=== PATIENT | female | born 1935 | race Caucasian/White ===

== ENCOUNTER 2018-01-23 12:19 | Outpatient (CLI) | payer MEDICARE | END 2018-01-23 12:20 | disposition home or self-care (01) | LOC: BICMAMMO 12:19 | PROVIDERS: ATTEND Family Medicine | DX: Z12.31 Encounter for screening mammogram for malignant neoplasm of breast (principal) | CPT/HCPCS: 77063; 77067 ==

== ENCOUNTER 2019-02-19 13:03 | Outpatient (CLI) | payer MEDICARE ==
--- NOTE | 2019-02-19 15:46 | MMO ---
Bilateral MAMMO Bilat Screen [facility]. CLINICAL HISTORY: Patient is 83 years old and is seen for screening. The patient has no family history of breast cancer. The patient has no personal history of cancer. The patient has a history of right Excisional Biopsy in 20+ years ago - Benign. VIEWS: The views performed were: bilateral craniocaudal with tomosynthesis and bilateral mediolateral oblique with tomosynthesis. FILMS COMPARED: The present examination has been compared to prior imaging studies performed at [facility] on 12/10/2014, 12/15/2015, 12/29/2016 and 01/23/2018. MAMMOGRAM FINDINGS: The breasts are heterogeneously dense, which could obscure a lesion on mammography. There are benign appearing and vascular calcifications seen in both breasts. There are no suspicious masses, suspicious calcifications, or new areas of architectural distortion. IMPRESSION: THERE IS NO MAMMOGRAPHIC EVIDENCE OF MALIGNANCY. A ROUTINE FOLLOW-UP MAMMOGRAM IN 1 YEAR IS RECOMMENDED. THE RESULTS OF THIS EXAM WERE SENT TO THE PATIENT. ACR BI-RADS Category 2 - Benign finding MAMMOGRAPHY NOTE: 1. A negative mammogram report should not delay a biopsy if a dominant of clinically suspicious mass is present. 2. Approximately 10% to 15% of breast cancers are not detected by mammography. 3. Adenosis and dense breasts may obscure an underlying neoplasm. Reported by: VIRI MCKEE MD Electonically Signed: [id number]
== END 2019-02-19 13:04 | disposition home or self-care (01) ==
LOC: BICMAMMO 13:03
PROVIDERS: ATTEND Family Medicine
DX: Z12.31 Encounter for screening mammogram for malignant neoplasm of breast (principal); Z91.89 Other specified personal risk factors, not elsewhere classified
CPT/HCPCS: 77063; 77067

== ENCOUNTER 2019-03-19 06:43 | Emergency (ER) | payer MEDICARE ==
[2019-03-19] MEDS ORDERED: Adacel (T-DAP) 0.5 ML SYRINGE ONE (08:25)
--- NOTE | 2019-03-19 08:46 | RAD ---
RADIOGRAPH LEFT ANKLE THREE VIEWS: 03/19/2019 HISTORY: An 83-year-old female with traumatic left ankle pain after a fall. FINDINGS: The ankle mortise is congruent. No displaced fracture is identified. No high grade DJD. The talar dom e is maintained. IMPRESSION: 1. No fracture identified. 2. If symptoms persist, follow-up imaging is recommended in 5 to 10 days. POS: [facility]
[2019-03-19] MEDS ORDERED: traMADol HCl 50 MG TAB ONE ×2 (09:02→14:17)
--- NOTE | 2019-03-19 09:03 | RAD ---
RADIOGRAPH LEFT KNEE FOUR VIEWS: 03/19/2019 6:55 a.m. HISTORY: An 83-year-old female with acute traumatic left knee pain after a fall. FINDINGS: Metallic prostheses cover the resurfaced articular surfaces of the distal femur and the tibial platea u. Resurfacing changes of the posterior aspect of the patella. There is a vertically oriented linear lucency at the lateral edge of the lateral femoral condyle, located close to the lateral edge of the femoral metallic prosthesis, representing a fracture. There is minimal-mild lateral displacement of t he 4.5 x 1 cm lateral fracture fragment. There is a moderately large suprapatellar soft tissue densit y, which could represent hemarthrosis. No dislocation. IMPRESSION: 1. Evidence for a minimally or mildly displaced fracture of the lateral edge of the lateral femoral c ondyle, presumably acute. 2. Evidence for hemarthrosis. 3. Status post total left knee replacement arthroplasty. POS: [facility]
--- NOTE | 2019-03-19 09:13 | RAD ---
LEFT HAND THIRD DIGIT THREE VIEWS: HISTORY: Fall. Pain. Swelling. FINDINGS: There is degenerative change involving the distal interphalangeal joint space and the proximal interp halangeal joint space. There is no fracture. No cortical irregularity or periosteal reaction. Soft ti ssue swelling is noted at the proximal aspect of the third digit. IMPRESSION: Soft tissue swelling without evidence of fracture. POS: [facility]
== END 2019-03-19 14:28 ==
LOC: ERS 06:43
DX: S72.422A Displaced fracture of lateral condyle of left femur, initial encounter for closed fracture (principal); E11.9 Type 2 diabetes mellitus without complications; K21.9 Gastro-esophageal reflux disease without esophagitis; E78.5 Hyperlipidemia, unspecified; E78.00 Pure hypercholesterolemia, unspecified; I10 Essential (primary) hypertension; Z23 Encounter for immunization; Z79.899 Other long term (current) drug therapy; Z79.82 Long term (current) use of aspirin; Z79.84 Long term (current) use of oral hypoglycemic drugs; W01.0XXA Fall on same level from slipping, tripping and stumbling without subsequent striking against object, initial encounter
CPT/HCPCS: 90471; 90715

== ENCOUNTER 2019-04-29 09:39 | Observation (INO) | payer MEDICARE ==
[2019-04-29 10:20] LABS: #Lymphocytes 1.5 thou/uL (1.20-3.40); #Monocytes 0.6 thou/uL (0.11-0.59); #Neutrophils 7.3 thou/uL (1.40-6.50); %Basophils 0.5 % (0.0-1.0); %Eosinophils 0.4 % (0.0-10.0); %Lymphocytes 15.8 % (21.0-51.0); %Monocytes 6.3 % (0.0-10.0); Mean Corpuscular Hemoglobin 25.4 pg (27.0-31.0); Mean Corpuscular Volume 79.5 fL (78.0-98.0); Mean Platelet Volume 8.4 fL (7.4-10.4); Platelet Count 405 thou/uL (130-400); RBC Distribution Width 15.1 % (11.5-14.5); Red Blood Cell (RBC) Count 3.56 mill/uL (4.20-5.40); White Blood Cell (WBC) Count 9.4 thou/uL (4.8-10.8)
--- NOTE | 2019-04-29 10:32 | RAD ---
XR Chest 1 View Portable HISTORY: Intermittent left shoulder and back pain radiating into the left chest. Left chest pain COMPARISON: 09/13/2013 FINDINGS: The heart size is at upper limits of normal. Left-sided AICD remains in place. The lungs ar e well expanded without focal areas of consolidation, pneumothorax or pleural effusions. IMPRESSION: No radiographic evidence of acute cardiopulmonary process.
[2019-04-29] MEDS ORDERED: Nitroglycerin 2% Ointment 1 INCH/1 GM Packet ONE (10:49)
[2019-04-29 10:53] LABS: ALT (SGPT) 10 U/L (8-55); AST (SGOT) 12 U/L (5-34); Albumin 3.9 g/dL (3.4-4.8); Alkaline Phosphatase 81 U/L (40-110); Anion Gap 15 mmol/L (10-20); BUN (Urea Nitrogen) 14 mg/dL (9.8-20.1); Bilirubin, Total 0.3 mg/dL (0.2-1.2); CK (CPK) 57 U/L (29-168); Calc. Creatinine Clearance 0 mL/min (70-130); Calcium 8.9 mg/dL (7.8-10.44); Carbon Dioxide 23 mmol/L (23-31); Chloride 103 mmol/L (98-107); Estimated GFR-MDRD 71; Globulin 2.9 g/dL (2.4-3.5); Glucose 112 mg/dL (83-110); Lipase 14 U/L (8-78); Potassium 3.6 mmol/L (3.5-5.1); Protein, Total 6.8 g/dL (6.0-8.3); Sodium 137 mmol/L (136-145)
[2019-04-29] MEDS ORDERED: Aspirin Chewable 81 MG TAB ONE (11:00)
[2019-04-29] MEDS ORDERED: Iopamidol-370 76% 500 ML 1 ML ONE (11:04)
--- NOTE | 2019-04-29 11:41 | CT ---
CT PULMONARY ANGIOGRAM WITH IV CONTRAST AND 3-D POSTPROCESSING: HISTORY:Left-sided chest pain FINDINGS: There is good contrast opacification of the pulmonary arterial vasculature without filling defects to suggest pulmonary embolism. The thoracic aorta is without aneurysm. No pleural or pericardial effusions are seen. No pneumothoraces, focal areas of consolidation or lung nodules are noted. There is mild scarring at the lung bases. There are degenerative changes in the spine. Upper abdominal tomograms demonstrate changes of cholecystectomy. IMPRESSION: No CT evidence of pulmonary embolism.
[2019-04-29] MEDS ORDERED: Potassium Chloride 20 MEQ TAB PO SCH (12:55)
[2019-04-29] MEDS ORDERED: Potassium Chloride 20 MEQ TAB ONE (12:58)
[2019-04-29 13:53] LABS: Troponin I Less than 0.010 ng/mL (< 0.028)
[2019-04-29 14:19] VITALS: BMI 27.1
[2019-04-29] MEDS ORDERED: HumaLOG 300 UNITS/3 ML VIAL SC PRN (14:21)
[2019-04-29] MEDS ORDERED: Dextrose 5% in Water 1,000 ML IV PRN (14:21)
[2019-04-29] MEDS ORDERED: Dextrose 50% Abboject 50 ML SYRINGE SLOW IVP PRN (14:21)
[2019-04-29] MEDS ORDERED: Magnesium 2 GM/50 ML 2 GM in Premix Bag 1 BAG IVPB SCH (15:00)
[2019-04-29] MEDS: Gabapentin 300 MG CAP PO SCH ×2 (15:12→20:17)
[2019-04-29] MEDS ORDERED: Nitroglycerin 2% Ointment 1 INCH/1 GM Packet TOP PRN (16:46)
[2019-04-29 16:48] LABS: Troponin I Less than 0.010 ng/mL (< 0.028)
[2019-04-29] MEDS: traMADol HCl 50 MG TAB PO PRN (17:04)
[2019-04-29] MEDS: Carvedilol 6.25 MG TAB PO SCH (20:17)
[2019-04-29] MEDS ORDERED: Atorvastatin Calcium 40 MG TAB PO SCH (21:00)
[2019-04-29] MEDS ORDERED: Pravastatin Sodium 20 MG TAB PO SCH (21:00)
--- NOTE | 2019-04-29 21:34 | HP ---
CHIEF COMPLAINT: Left shoulder pain, and chest pain. HISTORY OF PRESENT ILLNESS: The patient is an 83-year-old female with a history of systolic heart failure. She has an AICD, who presents to the hospital with complaints of left shoulder pain, which worsened and came to her chest area. The patient states that on Monday, she started having left-sided scapular pain, which was sharp in nature. The patient did not remember lifting anything. She stated that she was sitting when she started having this pain. Monday and Monday, her pain worsened to the point that today, the pain radiated up to her front chest wall area and it was very dull in nature. She denies any diaphoresis, any shortness of breath, or any fevers and chills, or any nausea, or vomiting. The patient states that she does follow up with Dr. Shirley and saw Dr. Shirley recently. However, she did not get a chance to get her pacemaker interrogated. 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 However, while she was in the ER, she had multiple episodes of PVCs and the patient was completely asymptomatic. PAST MEDICAL HISTORY: As of the following; 1. GERD. 2. Hypertension. 3. Systolic heart failure. 4. Borderline diabetic. PAST SURGICAL HISTORY: She has had bilateral knee replacement. She has a pacemaker ICD. PAST SURGICAL HISTORY: Cholecystectomy and hysterectomy. SOCIAL HISTORY: She denies any alcohol use, or any other recreational drug use. She is a full code. Lives with her son. REVIEW OF SYSTEMS: All negative except for the ones mentioned above in the HPI. ALLERGIES: HYDROCODONE AND MORPHINE. MEDICATIONS: 1. Aspirin 325 daily. 2. Benazepril 20 mg daily. 3. Carvedilol 12.5 b.i.d. 4. Gabapentin 600 mg twice a day. 5. Omeprazole 20 mg daily. 6. Tramadol 50 mg daily. 7. Atorvastatin 40 mg daily. 8. Metformin 500 mg twice a day. PHYSICAL EXAMINATION: VITAL SIGNS: Temperature of 97.7, oxygenation 96%, respiratory rate 16, blood pressure 117/76, pulse 65. GENERAL: She is awake, alert, and oriented x3. Does not appear in distress. HEENT: Normocephalic, atraumatic. No lymphadenopathy noted. Pupils are equal and reactive to light. CARDIOVASCULAR: S1 and S2 present. No murmurs, rubs, or gallops. LUNGS: Clear to auscultation. No rhonchi or wheezes noted. ABDOMEN: Soft and nontender. Bowel sounds are present x2. EXTREMITIES: No edema. Pedal pulses are present x2. MUSCULOSKELETAL: I did palpate around her left joint area. She had no pain that was reproducible. LABORATORY RESULTS: As of the following; WBCs of 9.4, hemoglobin of 9.0, hematocrit of 28.3. Her MCV 79.5. Chemistry; sodium of 137, potassium of 3.6, BUN of 14, creatinine of 0.77. Her troponin x2 were negative. Her BNP was 787. She did have a CTA, which did not show any pulmonary embolism. ASSESSMENT AND PLAN: The patient is a very pleasant 83-year-old female, who presents to the hospital with complaints of some chest tightness. 1. Atypical chest pain. The patient stated that her pain was in her left shoulder, which radiated to her chest and became very dull in nature. She had multiple episodes of PVCs and almost had a little run of PVC. I did check her electrolytes. Her magnesium was very low. This could be because of low magnesium. I will go ahead and interrogate her ICD and we will also consult Cardiology. I am not sure if she had recent testing done in regard to echo or a stress test. She states that she has had a stress test, but this has been in the past. She is currently on a beta denae, which I will continue. The patient is completely asymptomatic. Upon reviewing her records, the patient does seem to have had a cardiac catheterization that had indicated mild obstructive coronary disease. I am not sure if there is any recent cardiac catheterization. 2. Hypertension. We will continue her home medication. 3. History of systolic heart failure. We will check a BNP and continue her home medications. 4. Diabetes. We will hold metformin currently due to her receiving contrast and I have notified this to the patient. 5. Deep venous thrombosis prophylaxis. We will put patient on some subcu Lovenox. Job ID: [id number]
--- NOTE | 2019-04-30 01:44 | CON ---
DATE OF CONSULTATION: HISTORY OF PRESENT ILLNESS: Delores Pimentel is an 83-year-old white female, patient who has followed with Dr. Shirley for many years. In June 2013, she underwent cardiac catheterization and was found to have a 40% lesion in the LAD after the diagonal branch. The circumflex had no significant stenosis and the right coronary had a 20% proximal plaque at the ostium. Her ejection fraction was 25%, and she had chronic left bundle-branch block. She underwent placement of a biventricular ICD in September 2013. Her most recent echocardiogram was in October 2018. Her ejection fraction was 55% to 60% with frequent PVCs, trace mitral regurgitation, aortic valvular sclerosis, trace aortic regurgitation, mild tricuspid regurgitation. She was last seen in the office on April 11, 2019 and had no specific complaints at that time. She had been having some falls whenever she would lean over. She states that she has had chronic left scapular pain and has undergone multiple thoracic spine injections by Dr. Gracia. She states that this morning she had the same type of discomfort, however, at this time it radiated around to her chest. It lasted for several minutes and she decided to come get it checked out. In the emergency room, she was given aspirin and nitropaste. At the present time, she denies any chest discomfort. PAST MEDICAL HISTORY: Mild coronary artery disease, hypercholesterolemia, hypertension, chronic systolic congestive heart failure, however, significant improvement with biventricular pacing, history of atrial fibrillation, PVCs. PAST SURGICAL HISTORY: Cholecystectomy, hysterectomy, and biventricular ICD placement. MEDICATIONS: 1. Aspirin 325 daily. 2. Carvedilol 12.5 b.i.d. 3. Vitamin B12 and folic acid daily. 4. q.6 hours p.r.n. 5. Neurontin 2 capsules b.i.d. 6. Hydrochlorothiazide 12.5 q.a.m. 7. Lisinopril 20 daily. 8. Metformin 500 mg b.i.d. 9. Prilosec 20 b.i.d. 10. Pravastatin 20 q.p.m. 11. Tramadol 50 at bedtime. ALLERGIES: NONE. REVIEW OF SYSTEMS: A 10-point review of systems is otherwise unremarkable. PHYSICAL EXAMINATION: VITAL SIGNS: Blood pressure 194/92, pulse of 91. HEENT: PERRL. NECK: Supple. CHEST: Clear. CARDIAC: S1 and S2 normal without any S3, S4, or murmurs. ABDOMEN: Normal bowel sounds without tenderness, organomegaly. EXTREMITIES: Reveal no clubbing, cyanosis, or edema. NEUROLOGIC: Grossly intact. MUSCULOSKELETAL: Reveals no palpable chest tenderness or left scapular or left infrascapular pain. LABORATORY DATA: EKG reveals A-V pacing with trigeminal PVCs. Hemoglobin 9.0, hematocrit 28.3, white count 9400, platelets 405,000. D-dimer 0.50. BNP 787.4. Troponin I is normal x3. Sodium 137, potassium 3.6, chloride 103, carbon dioxide 23, BUN 14, creatinine 0.77. CT angiogram of the chest revealed no evidence of pulmonary embolism. IMPRESSION: 1. Atypical left scapular and left chest pain, probably musculoskeletal in nature. 2. History of mild coronary artery disease on catheterization in 2013. 3. Left bundle-branch block with ejection fraction of 25% which is improved to 55%-60% with biventricular pacing. 4. Status post biventricular ICD placement. 5. Hypertension. 6. Hypercholesterolemia. 7. Diabetes. PLAN: Fasting lipid profile will be obtained. [facility] will be performed. She will undergo adenosine Cardiolite testing to re-evaluate the status of her coronary artery disease. Job ID: [id number] MTDD
[2019-04-30 05:15] LABS: Cardiac Risk 2.3 (Less than 4.5)
[2019-04-30] MEDS: Gabapentin 300 MG CAP PO SCH (08:27)
[2019-04-30] MEDS: traMADol HCl 50 MG TAB PO PRN (08:28)
[2019-04-30] MEDS ORDERED: Lisinopril 20 MG TAB PO SCH ×2 (09:00)
[2019-04-30] MEDS ORDERED: Aspirin 325 MG TAB PO SCH (09:00)
[2019-04-30] MEDS ORDERED: ADENOSINE 60 MG/20 ML VIAL ONE (10:42)
[2019-04-30 12:28] VITALS: BP 136/63; TEMP 97.4
--- NOTE | 2019-04-30 13:12 | NM ---
CARDIAC SPECT: HISTORY: An 83-year-old female with chest pain, coronary artery disease, hypertension, diabetes and dyslipidem ia. TECHNIQUE: A myocardial perfusion scan was performed using the single isotope one day protocol with technetium 9 9m sestamibi and 11 millicuries was injected intravenously for the rest exam followed by 29 millicuri es for the stress study. Pharmacologic stress with adenosine was monitored and interpreted by Dr. Yesika richard. FINDINGS: A small fixed defect is seen in the distal anteroseptal wall. No reversible defects are identified. GATED SPECT LVEF: 38% WALL MOTION EXAM: Global hypokinesis. IMPRESSION: No evidence of reversible ischemia. POS: OFF
--- NOTE | 2019-04-30 13:53 | DIS ---
DATE OF ADMISSION: 04/29/2019 DATE OF DISCHARGE: 04/30/2019 PRIMARY CARE PROVIDER: Dee Dee Salas MD CLOTH PATTERN MAKER: Alejandro Shirley MD DISPOSITION: Discharged home. DIAGNOSES: 1. Noncardiac chest pain. 2. Hypertension. 3. Diabetes mellitus, type 2. 4. Coronary artery disease, minimal. DISCHARGE MEDICATIONS: Same as home medicines. 1. Metformin 500 mg twice a day. 2. Zestril 20 mg a day. 3. Tramadol 50 mg p.o. q.4 hours p.r.n. pain. 4. Neurontin 600 mg twice a day. 5. Coreg 12.5 mg twice a day. 6. Aspirin 325 mg a day. 7. Hydrochlorothiazide 12.5 mg a day. 8. Pravastatin 20 mg a day. 9. Omeprazole 20 mg p.o. b.i.d. ALLERGIES: NO KNOWN DRUG ALLERGIES. PENDING AT TIME OF DISCHARGE: Nothing. DIET: Heart healthy. CODE STATUS: Full. CONSULTATIONS: Jose Juan Corral MD HOSPITAL COURSE: The patient admitted to the [facility] for shoulder pain, chest pain. Her EKG and enzymes were unremarkable. She was seen by Dr. Jose Juan Corral, who recommended the stress test. She had a nuclear medicine stress test, which showed no reversible ischemia. She is being discharged to follow up with her pain control doctor, Dr. Gracia. No changes in medications were made. No procedures were done. Job ID: [id number]
[2019-04-30] MEDS: Carvedilol 6.25 MG TAB PO SCH (13:57)
== END 2019-04-30 14:46 | disposition home or self-care (01) ==
LOC: ERS 09:39 → 2SW 14:00 → OBSVTOIN 17:11 → INTOOBSV 17:11
PROVIDERS: ADMIT Internal Medicine; ATTEND Internal Medicine
DX: R07.89 Other chest pain (principal); G89.29 Other chronic pain; M25.512 Pain in left shoulder; E11.9 Type 2 diabetes mellitus without complications; I11.0 Hypertensive heart disease with heart failure; I50.22 Chronic systolic (congestive) heart failure; I25.10 Atherosclerotic heart disease of native coronary artery without angina pectoris; I44.7 Left bundle-branch block, unspecified; K21.9 Gastro-esophageal reflux disease without esophagitis; E78.00 Pure hypercholesterolemia, unspecified; Z79.82 Long term (current) use of aspirin; Z79.84 Long term (current) use of oral hypoglycemic drugs; Z79.899 Other long term (current) drug therapy; Z95.810 Presence of automatic (implantable) cardiac defibrillator; Z88.5 Allergy status to narcotic agent
CPT/HCPCS: 71045; 71275; 78452; 80053; 80061; 82550; 82962 ×2; 83690; 83735; 83880; 84484 ×2; 85025; 85379; 93005; 93017; 94760; 96361; 96365; 99285; A9500; G0378 ×3; 36415; 36416; 96360; J0153; J3475; Q9967

== ENCOUNTER 2019-07-04 11:54 | Observation (INO) | payer MEDICARE ==
[2019-07-04 13:09] LABS: #Basophils 0.1 thou/uL (0.0-0.2); #Eosinphils 0.1 thou/uL (0.0-0.7); #Lymphocytes 2.1 thou/uL (1.20-3.40); #Monocytes 0.7 thou/uL (0.11-0.59); #Neutrophils 4.8 thou/uL (1.40-6.50); %Eosinophils 1.3 % (0.0-10.0); %Lymphocytes 26.9 % (21.0-51.0); %Monocytes 9.2 % (0.0-10.0); %Neutrophils 61.7 % (42.0-75.0); Hemoglobin 7.9 g/dL (12.0-16.0); Mean Corpuscular Hemoglobin 22.6 pg (27.0-31.0); Mean Corpuscular Volume 75.4 fL (78.0-98.0); Mean Platelet Volume 9.4 fL (7.4-10.4); Platelet Count 358 thou/uL (130-400); RBC Distribution Width 15.7 % (11.5-14.5); Red Blood Cell (RBC) Count 3.51 mill/uL (4.20-5.40); White Blood Cell (WBC) Count 7.8 thou/uL (4.8-10.8)
[2019-07-04 13:19] LABS: ALT (SGPT) 8 U/L (8-55); AST (SGOT) 10 U/L (5-34); Albumin 3.8 g/dL (3.4-4.8); Alkaline Phosphatase 77 U/L (40-110); Anion Gap 13 mmol/L (10-20); BUN (Urea Nitrogen) 25 mg/dL (9.8-20.1); Bilirubin, Total 0.2 mg/dL (0.2-1.2); Calc. Creatinine Clearance 0 mL/min (70-130); Calcium 9.1 mg/dL (7.8-10.44); Carbon Dioxide 31 mmol/L (23-31); Chloride 102 mmol/L (98-107); Estimated GFR-MDRD 62; Globulin 2.8 g/dL (2.4-3.5); Glucose 97 mg/dL (83-110); Potassium 4.3 mmol/L (3.5-5.1); Protein, Total 6.6 g/dL (6.0-8.3); Sodium 142 mmol/L (136-145)
[2019-07-04 13:31] LABS: Anisocytosis SLIGHT = 6-15 cells (100X) (0-5/hpf); Hypochromia SLIGHT = 6-15 cells (100X) (0-5/hpf); MDiff Complete? YES; Microcytosis SLIGHT = 6-15 cells (100X) (0-5/hpf); Ovalocytes SLIGHT = 2-5 cells (100X) (0-1/hpf); Platelet Morphology Comment Appears Adequate; Poikilocytosis SLIGHT = 6-15 cells (100X) (0-5/hpf); Polychromasia SLIGHT = 2-3 cells (100X) (0-2/hpf); Schistocytes SLIGHT = 2-5 cells (100X) (0-1/hpf); Target Cells SLIGHT = 2-5 cells (100X) (0-1/hpf)
[2019-07-04 13:32] LABS: CK (CPK) 41 U/L (29-168); Lipase 21 U/L (8-78)
[2019-07-04 13:53] LABS: Bilirubin Negative (Negative); Blood, Urine Negative (Negative); Clarity Clear (Clear); Glucose, Urine (Dipstick) Normal (Negative); Leukocyte Negative Leu/uL (Negative); Nitrite Negative (Negative); Protein, Urine (Dipstick) Negative (Neg-Trace); Urobilinogen Normal mg/dL (Less than 2)
--- NOTE | 2019-07-04 14:02 | CT ---
CT Brain WO Con: 07/04/2019 1:08 PM CLINICAL HISTORY: Altered mental status; filling unwell for the past week. IMAGING TECHNIQUE: Multiple CT images were obtained of the brain without IV contrast. COMPARISON: CT the brain dated June 27, 2016. FINDINGS: Brain: No acute infarct or hemorrhage is evident. No midline shift. There is stable prominent chron ic small vessel white matter ischemic change. 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 Ventricles: Normal. No hydrocephalus. Skull: Intact. Visualized Paranasal sinuses: Clear. Mastoid air cells:Clear. Extracranial soft tissues:Normal. IMPRESSION: No acute intracranial abnormality.
--- NOTE | 2019-07-04 14:41 | RAD ---
RADIOGRAPH CHEST 1 VIEW: DATE: 07/04/2019. TIME: 1:17 p.m. HISTORY: An 83-year-old female with chest discomfort and bradycardia. FINDINGS: The thoracic aorta is tortuous and ectatic. There is no evidence of air space density, pneumothorax, or pulmonary edema. The lateral costophrenic angles are sharp. There is a left subclavian multilea d AICD. There is no interval change overall since 04/29/2019. IMPRESSION: 1) No acute pulmonary findings. 2) Ectasia of thoracic aorta. 3) Automatic implantable cardioverter-defibrillator. raquel [] POS: [facility]
[2019-07-04] MEDS ORDERED: Ondansetron PF 4 MG/2 ML Vial IVP PRN (16:19)
[2019-07-04] MEDS ORDERED: Acetaminophen 325 MG TAB PO PRN (16:19)
[2019-07-04 16:54] LABS: Lactic Acid 2.2 mmol/L (0.5-2.2)
[2019-07-04 17:01] VITALS: BMI 25.6
--- NOTE | 2019-07-04 17:11 | PDOC.HHP ---
Hospitalist HPI - History of Present Illness GB History of Present Illness: Ms. Pimentel is an 83 y/o lady with PMH of PVCs/bradycardia s/p pacemaker placement, t2DM, HTN, who presents to the ED for generalized body weakness. She states that she just has not been feeling well. She has been weak overall and states that she has wheelchair and walker at home but does not feel like moving around. Additionally, she has had decreased water intake the past week or so. She states she has not been drinking as much water as she normally does. Her money market dealer is Dr. Shirley and she has a pacemaker placed for bradycardia and has frequent PVCs. In the ED, her hb found tob 7.9 but she denies any bleeding symptoms at this time. Otherwise denies other complaints. Hospitalist ROS - Review of Systems Constitutional: denies: fever, chills, sweats, weakness, malaise, other Eyes: denies: pain, vision change, conjunctivae inflammation, eyelid inflammation, redness, other ENT: denies: ear pain, ear discharge, nose pain, nose discharge, nose congestion , mouth pain, mouth swelling, throat pain, throat swelling, other Respiratory: denies: cough, dry, shortness of breath, hemoptysis, SOB with excertion, pleuritic pain, sputum, wheezing, other Cardiovascular: denies: chest pain, palpitations, orthopnea, paroxysmal noc. dyspnea, edema, light headedness, other Gastrointestinal: denies: nausea, vomiting, abdominal pain, diarrhea, constipation, melena, hematochezia, other Genitourinary: denies: dysuria, frequency, incontinence, hematuria, retention, other Musculoskeletal: denies: neck pain, shoulder pain, arm pain, back pain, hand pain, leg pain, foot pain, other Skin: denies: rash, lesions, irma, bruising, other Neurological: denies: weakness, numbness, incoordination, change in speech, confusion, seizures, other - Medication Medications: aspirin oral MonJul 04, 2019 13:36 YESY Kerns, Dana TABLET : Strength - 325 mg : ORAL Patient Dose: 1 tab(s) Oral once a day. benazepril MonJul 04, 2019 13:36 YESY Kerns, Dana TABLET : Strength - 20 mg : ORAL Patient Dose: 10 mg Oral once a day. carvedilol MonJul 04, 2019 13:36 YESY Kerns, Dana TABLET : Strength - 12.5 mg : ORAL Patient Dose: 6.25 mg Oral 2 times a day. gabapentin MonJul 04, 2019 13:36 YESY Kerns, Dana TABLET : Strength - 600 mg : ORAL Patient Dose: 1 tab(s) Oral 2 times a day. omeprazole MonJul 04, 2019 13:36 YESY Kerns Catherine TABLET, DELAYED RELEASE (ENTERIC COATED) : Strength - 20 mg : ORAL Patient Dose: 2 tab(s) Oral once a day. traMADol MonJul 04, 2019 13:36 YESY Kerns, Dana TABLET : Strength - 50 mg : ORAL Patient Dose: 1 tab(s) Oral 2 times a day. atorvastatin MonJul 04, 2019 13:36 YESY Kerns Catherine TABLET : Strength - 40 mg : ORAL Patient Dose: 1 tab(s) Oral once a day. metFORMIN MonJul 04, 2019 13:36 YESY Kerns Catherine TABLET : Strength - 500 mg : ORAL Patient Dose: 1 tab(s) Oral 2 times a day. furosemide oral MonJul 04, 2019 13:38 YESY Kerns Catherine tablet : Strength - 40 mg : ORAL Patient Dose: 1 tab(s) Oral once a day. potassium chloride oral MonJul 04, 2019 13:39 YESY Kerns Catherine tablet extended release : Strength - 10 mEq : ORAL Patient Dose: 1 tab(s) Oral once a day. Hospitalist History - Past Medical History Cardiac: reports: HTN, Other (pacemaker) Pulmonary: reports: no pertinent history TRAVELING AUDITOR: reports: no pertinent history Gastrointestinal: reports: no pertinent history Heme/Onc: reports: Anemia NOS Hepatobiliary: reports: no pertinent history Psych: reports: no pertinent history Musculoskeletal: reports: no pertinent history Rheumatologic: reports: no pertinent history Infectious Disease: reports: no pertinent history ENT: reports: no pertinent history Renal/: reports: no pertinent history Endocrine: reports: Diabetes Dermatology: reports: no pertinent history - Past Surgical History Past Surgical History: reports: no pertinent history - Family History Family History: reports: hypertension - Social History Smoking Status: Never smoker Alcohol: reports: None Drugs: reports: none Living Situation: Alone Activity level: uses cane/walker Other Social History: use whellchair, has nurse to help out around house - Exam General Appearance: NAD, awake alert Eye: PERRL, anicteric sclera ENT: normocephalic atraumatic, no oropharyngeal lesions, moist mucosa Neck: supple, symmetric, no JVD, no thyromegaly, no lymphadenopathy, no carotid bruit Heart: RRR, no murmur, no gallops, no rubs, normal peripheral pulses Respiratory: CTAB, no wheezes, no rales, no ronchi, normal chest expansion, no tachypnea, normal percussion Gastrointestinal: soft, non-tender, non-distended, normal bowel sounds, no palpable masses, no hepatomegaly, no splenomegaly, no bruit Extremities: no cyanosis, no clubbing, no edema Skin: normal turgor, no lesions, no rashes Neurological: cranial nerve grossly intact, normal sensation to touch, no weakness, no focal deficits, no new deficit Musculoskeletal: normal tone, normal strength, no muscle wasting Psychiatric: normal affect, normal behavior, A&O x 3 Hospitalist Results - Labs Result Diagrams: 07/04/19 17:09 07/04/19 12:48 Lab results: WBC 7.8 thou/uL (4.8-10.8) 07/04/19 12:48 Hgb 7.9 g/dL (12.0-16.0) L 07/04/19 12:48 Hct 26.4 % (36.0-47.0) L 07/04/19 12:48 MCV 75.4 fL (78.0-98.0) L 07/04/19 12:48 Plt Count 358 thou/uL (130-400) 07/04/19 12:48 Neutrophils % 61.7 % (42.0-75.0) 07/04/19 12:48 Sodium 142 mmol/L (136-145) 07/04/19 12:48 Potassium 4.3 mmol/L (3.5-5.1) 07/04/19 12:48 Chloride 102 mmol/L (98-107) 07/04/19 12:48 Carbon Dioxide 31 mmol/L (23-31) 07/04/19 12:48 BUN 25 mg/dL (9.8-20.1) H 07/04/19 12:48 Creatinine 0.87 mg/dL (0.6-1.1) 07/04/19 12:48 Glucose 97 mg/dL (83-110) 07/04/19 12:48 Lactic Acid 2.2 mmol/L (0.5-2.2) 07/04/19 16:24 Calcium 9.1 mg/dL (7.8-10.44) 07/04/19 12:48 Total Bilirubin 0.2 mg/dL (0.2-1.2) 07/04/19 12:48 AST 10 U/L (5-34) 07/04/19 12:48 ALT 8 U/L (8-55) 07/04/19 12:48 Alkaline Phosphatase 77 U/L (40-110) 07/04/19 12:48 Creatine Kinase 41 U/L (29-168) 07/04/19 12:48 Troponin I Less than 0.010 ng/mL (< 0.028) 07/04/19 12:48 Serum Total Protein 6.6 g/dL (6.0-8.3) 07/04/19 12:48 Albumin 3.8 g/dL (3.4-4.8) 07/04/19 12:48 Lipase 21 U/L (8-78) 07/04/19 12:48 Urine Ketones Negative mg/dL (Negative) 07/04/19 13:33 Urine Blood Negative (Negative) 07/04/19 13:33 Urine Nitrite Negative (Negative) 07/04/19 13:33 Ur Leukocyte Esterase Negative Delisa/uL (Negative) 07/04/19 13:33 Additional comment: Vital Signs (12 hours) Temp Pulse Resp BP Pulse Ox 07/04/19 16:52 97.6 F 94 16 124/58 L 95 Weight Weight 168 lb 11.2 oz - EKG Interpretation EKG: EKG interp by me - Radiology Interpretation CT scan - head Status: report reviewed by me Hospitalist H&P A/P - Problem (1) Dehydration Code(s): E86.0 - DEHYDRATION Status: Acute (2) Microcytic anemia Code(s): D50.9 - IRON DEFICIENCY ANEMIA, UNSPECIFIED Status: Acute (3) Pacemaker Code(s): Z95.0 - PRESENCE OF CARDIAC PACEMAKER Status: Acute (4) DM type 2 (diabetes mellitus, type 2) Status: Acute (5) Senile debility Code(s): R54 - AGE-RELATED PHYSICAL DEBILITY Status: Acute - Plan Plan: For observation on telemetry. Clinically dehydrated. Continue with NS @ 100ml/ hr. Monitor lactate and trend until negative Workup of anemia inluding Iron panel, retic count, peripheral smear. No bleeding sxs at this time. Will continue her medication at home for chronic conditions Fall precuations. Ambulate with assistance Consult for PT/OT eval Code status: Full ACP: Son is surrogate decision maker Disposition: Observation. Continue IV fluids. Probable d/c in 24 hours. May benefit from home health PT.
[2019-07-04 17:40] LABS: Iron 13 ug/dL (50-170); Iron Binding Capacity, Total 444 mcg/dL (265-497)
[2019-07-04 17:43] LABS: Reticulocyte Count 1.4 % (0.5-1.5)
[2019-07-04 17:55] LABS: Hemoglobin 8.2 g/dL (12.0-16.0); Mean Corpuscular HGB CONC 29.6 g/dL (32.0-36.0); Mean Corpuscular Hemoglobin 22.4 pg (27.0-31.0); Mean Corpuscular Volume 75.7 fL (78.0-98.0); Mean Platelet Volume 9.2 fL (7.4-10.4); Platelet Count 362 thou/uL (130-400); Red Blood Cell (RBC) Count 3.66 mill/uL (4.20-5.40); White Blood Cell (WBC) Count 9.3 thou/uL (4.8-10.8)
[2019-07-04] MEDS: Sodium Chloride 0.9% 1,000 ML IV SCH (17:57)
[2019-07-04 18:20] LABS: Anisocytosis SLIGHT = 6-15 cells (100X) (0-5/hpf); Band 7 % (5-11); Elliptocytes SLIGHT = 2-5 cells (100X) (0-1/hpf); Eosinophils 1 % (0-10); Hypochromia SLIGHT = 6-15 cells (100X) (0-5/hpf); Lymphocytes 30 % (21-51); MDiff Complete? YES; Microcytosis SLIGHT = 6-15 cells (100X) (0-5/hpf); Monocytes 7 % (0-10); Neutrophil 55 % (42-75); Ovalocytes SLIGHT = 2-5 cells (100X) (0-1/hpf); Platelet Morphology Comment Appears Adequate; Poikilocytosis SLIGHT = 6-15 cells (100X) (0-5/hpf); Polychromasia SLIGHT = 2-3 cells (100X) (0-2/hpf); Schistocytes SLIGHT = 2-5 cells (100X) (0-1/hpf); Spherocytes SLIGHT = 1-5 cells (100X) (None Seen); Target Cells SLIGHT = 2-5 cells (100X) (0-1/hpf)
[2019-07-04] MEDS ORDERED: Ondansetron ODT 4 MG TAB PO PRN (21:53)
[2019-07-04] MEDS: traMADol HCl 50 MG TAB PO SCH (22:44)
[2019-07-04] MEDS ORDERED: Lisinopril 10 MG TAB PO SCH (22:45)
[2019-07-04] MEDS ORDERED: Carvedilol 6.25 MG TAB PO SCH (22:45)
[2019-07-04] MEDS ORDERED: Atorvastatin Calcium 40 MG TAB PO SCH (22:45)
[2019-07-04] MEDS ORDERED: Gabapentin 300 MG CAP PO SCH (22:45)
[2019-07-05] MEDS: Sodium Chloride 0.9% 1,000 ML IV SCH ×3 (02:19→16:34)
[2019-07-05 05:02] LABS: #Eosinphils 0.2 thou/uL (0.0-0.7); #Lymphocytes 2.9 thou/uL (1.20-3.40); #Monocytes 0.7 thou/uL (0.11-0.59); #Neutrophils 3.9 thou/uL (1.40-6.50); %Basophils 0.6 % (0.0-1.0); %Eosinophils 2.4 % (0.0-10.0); %Lymphocytes 37.2 % (21.0-51.0); %Monocytes 8.8 % (0.0-10.0); Hemoglobin 6.8 g/dL (12.0-16.0); Mean Corpuscular HGB CONC 30.5 g/dL (32.0-36.0); Mean Corpuscular Hemoglobin 22.6 pg (27.0-31.0); Mean Corpuscular Volume 74.2 fL (78.0-98.0); Platelet Count 302 thou/uL (130-400); RBC Distribution Width 15.6 % (11.5-14.5); Red Blood Cell (RBC) Count 3.02 mill/uL (4.20-5.40); White Blood Cell (WBC) Count 7.7 thou/uL (4.8-10.8)
[2019-07-05 05:13] LABS: Lactic Acid 0.7 mmol/L (0.5-2.2)
[2019-07-05] MEDS ORDERED: Furosemide 40 MG TAB PO SCH (09:00)
[2019-07-05] MEDS: Aspirin 325 MG TAB PO SCH (10:08)
[2019-07-05] MEDS: Gabapentin 300 MG CAP PO SCH ×2 (10:08→20:23)
[2019-07-05] MEDS: traMADol HCl 50 MG TAB PO SCH ×2 (10:08→20:23)
[2019-07-05] MEDS: Potassium Chloride 10 MEQ TAB PO SCH (10:08)
[2019-07-05] MEDS: Carvedilol 6.25 MG TAB PO SCH ×2 (10:10→20:22)
[2019-07-05 16:05] LABS: Hemoglobin 7.1 g/dL (12.0-16.0); Platelet Count 330 thou/uL (130-400)
--- NOTE | 2019-07-05 16:17 | PDOC.HOSPP ---
- Subjective Subjective: Positive orthostatis this AM. No episodes of bleeding but Hb is 6.8. She has no other symptoms at this time. - Objective Vital Signs & Weight: Vital Signs (12 hours) Temp Pulse Resp BP BP BP BP 07/05/19 15:48 98.2 F 53 L 16 170/73 H 07/05/19 11:16 97.6 F 72 20 146/67 H 07/05/19 08:04 98.0 F 55 L 16 163/68 H 131/62 151/69 H 07/05/19 04:38 98.1 F 68 18 134/62 Pulse Ox 07/05/19 15:48 96 07/05/19 11:16 97 07/05/19 08:04 94 L 07/05/19 04:38 94 L Weight Admit Weight 168 lb 11.2 oz Weight 168 lb 11.2 oz I&O: 07/04/19 07/05/19 07/06/19 06:59 06:59 06:59 Intake Total 480 1000 Output Total 650 Balance -170 1000 Result Diagrams: 07/05/19 15:59 07/04/19 12:48 Additional Labs: Accuchecks 07/05/19 11:22 POC Glucose 108 Hospitalist ROS - Review of Systems Constitutional: reports: malaise. denies: fever, chills, sweats, weakness, other Eyes: denies: pain, vision change, conjunctivae inflammation, eyelid inflammation, redness, other ENT: denies: ear pain, ear discharge, nose pain, nose discharge, nose congestion , mouth pain, mouth swelling, throat pain, throat swelling, other Respiratory: denies: cough, dry, shortness of breath, hemoptysis, SOB with excertion, pleuritic pain, sputum, wheezing, other Cardiovascular: denies: chest pain, palpitations, orthopnea, paroxysmal noc. dyspnea, edema, light headedness, other Gastrointestinal: denies: nausea, vomiting, abdominal pain, diarrhea, constipation, melena, hematochezia, other Genitourinary: denies: dysuria, frequency, incontinence, hematuria, retention, other Musculoskeletal: denies: neck pain, shoulder pain, arm pain, back pain, hand pain, leg pain, foot pain, other Skin: denies: rash, lesions, irma, bruising, other Neurological: denies: numbness, incoordination, change in speech, confusion, seizures, other - Medication Medications: Active Medications Generic Name Dose Route Start Last Admin Trade Name Xavi PRN Reason Stop Dose Admin Aspirin 325 mg 07/05/19 09:00 07/05/19 10:08 Aspirin PO 325 mg DAILY EAN Administration Carvedilol 6.25 mg 07/05/19 09:00 07/05/19 10:10 Coreg PO Not Given BID EAN Furosemide 40 mg 07/05/19 09:00 07/05/19 10:10 Lasix PO Not Given DAILY EAN Gabapentin 600 mg 07/05/19 09:00 07/05/19 10:08 Neurontin PO 600 mg BID EAN Administration Sodium Chloride 1,000 mls @ 100 mls/hr 07/04/19 16:30 07/05/19 11:45 Normal Saline 0.9% IV 1,000 mls .Q10H EAN Administration Potassium Chloride 10 meq 07/05/19 09:00 07/05/19 10:08 Klor-Con 10 PO 10 meq DAILY EAN Administration Tramadol HCl 50 mg 07/05/19 09:00 07/05/19 10:08 Ultram PO 50 mg BID EAN Administration - Exam General Appearance: NAD, awake alert Eye: PERRL, anicteric sclera ENT: normocephalic atraumatic, no oropharyngeal lesions, moist mucosa Neck: supple, symmetric, no JVD, no thyromegaly, no lymphadenopathy, no carotid bruit Heart: RRR, no murmur, no gallops, no rubs, normal peripheral pulses Respiratory: CTAB, no wheezes, no rales, no ronchi, normal chest expansion, no tachypnea, normal percussion Gastrointestinal: soft, non-tender, non-distended, normal bowel sounds, no palpable masses, no hepatomegaly, no splenomegaly, no bruit Extremities: no cyanosis, no clubbing, no edema Skin: normal turgor, no lesions, no rashes Neurological: cranial nerve grossly intact, normal sensation to touch, no weakness, no focal deficits, no new deficit Musculoskeletal: normal tone, normal strength, no muscle wasting Psychiatric: normal affect, normal behavior, A&O x 3 Hosp A/P (1) Dehydration Code(s): E86.0 - DEHYDRATION Status: Acute (2) Microcytic anemia Code(s): D50.9 - IRON DEFICIENCY ANEMIA, UNSPECIFIED Status: Acute (3) Pacemaker Code(s): Z95.0 - PRESENCE OF CARDIAC PACEMAKER Status: Acute (4) DM type 2 (diabetes mellitus, type 2) Status: Acute (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 Discussed with patient need for further investigation given history of polyps in the past. May have occult bleeding Will consult GI to discuss further options with her Orthostats remains positive, will continue IVF for now Continue home medications, hold lasix for now She is unsure about transfusion of blood products, currently Hb is 7.1, will continue to trend. Disposition: Continue tx dehydration, further evaluation of anemia needed.
[2019-07-05] MEDS: Atorvastatin Calcium 40 MG TAB PO SCH (20:22)
[2019-07-05] MEDS: Lisinopril 10 MG TAB PO SCH (20:23)
--- NOTE | 2019-07-06 01:14 | CON ---
DATE OF CONSULTATION: REASON FOR CONSULTATION: Symptomatic anemia. HISTORY OF PRESENT ILLNESS: Ms. Delores Pimentel is a very pleasant 83-year-old female who is a regular patient of Dr. Gamez, Dr. Lanier in [place]. The patient has seen Dr. Liriano before. The patient was hospitalized because of symptomatic anemia. She has been feeling somewhat tired, poor energy and feeling weak over the last several weeks. The patient has no fever, no chills. There is no abdominal pain, nausea, vomiting. She was found to have anemia on admission. Her serum iron is low, and TIBC high indicative of iron deficient anemia. However, the patient has no history of blood loss. Denies any hematochezia, any melena. No history of hematuria, nose bleed, or bleeding from gums. The patient has seen Dr. Smooth Swann before for several years. The patient has had colonoscopies several times for colon polyps. Last one was done I believe about six years ago. The patient denies any dysphagia or odynophagia. No abdominal pain. No nausea, no vomiting. Much for the generalized weakness and fatigue, she had no other specific symptoms. She denies any chest pain, any palpitation, dyspnea, orthopnea, or PND. She does use a wheelchair and walker at home and she was finding it difficult to move around. She had no other relevant history. MEDICAL ILLNESSES: 1. Hypertension. 2. Coronary artery disease. 3. Status post pacemaker implant. 4. Status post AICD placement. 5. Chronic arthritis. 6. Diabetes mellitus. 7. Hypertension. 8. Status post cholecystectomy. 9. Status post hysterectomy. 10. Status post bilateral knee replacements. MEDICATION LIST: Includes: 1. Aspirin 325 once a day. 2. Benazepril 20 mg once a day. 3. Carvedilol 12.5 mg p.o. twice a day. 4. Gabapentin 600 mg one tablet twice a day. 5. Omeprazole 20 mg once a day. 6. Tramadol 50 mg one tablet twice a day. 7. Atorvastatin 40 mg once a day. 8. Metformin 500 mg p.o. twice a day. 9. Furosemide 40 mg once a day. 10. Other medicines include potassium supplement. SOCIAL HISTORY: The patient is a . Her in 2019. She does not smoke or drink alcohol. SYSTEM REVIEW: 10-point system review; CONSTITUTIONAL: No history of any fever or chills. No weight loss. Does complain of generalized weakness and fatigue. HEAD: No chronic headache. No dizziness. EYES: No diplopia. No impaired vision. ENT: No hearing loss. No history of any nose bleed. No sore throat. No dysphagia. RESPIRATORY SYSTEM: No chronic coughing. No hemoptysis. No dyspnea. CARDIOVASCULAR SYSTEM: No chest pain. No palpitation. No dyspnea, orthopnea, PND. GI: As in history of present illness. : No dysuria or hematuria. MUSCULOSKELETAL: History of chronic back pain, arthralgias, and does see Dr. Gracia. NEUROLOGICAL: Denies any weakness, any dizziness or syncope. PHYSICAL EXAMINATION: GENERAL: Revealed a very pleasant elderly female, appears very comfortable. She is awake, communicative. She is in no distress. She is afebrile. Pulse is 76, blood pressure 130/80. HEENT: Conjunctivae are clear. NECK: Supple. No adenitis or thyromegaly noted. CARDIOVASCULAR SYSTEM: First and second heart sounds heard. LUNGS: Clear to auscultation. ABDOMEN: Soft. Abdomen is nondistended. Abdomen is nontender. No organomegaly. No masses. Bowel sounds are normal. EXTREMITIES: Reveal no edema. LABORATORY DATA: Shows anemia and hemoglobin is 7.9, hematocrit 26.5, MCV 75.4, platelet count 358,000, polymorphs 61. Sodium 142, potassium 4.3, chloride 102, bicarb is 31, BUN is 25, creatinine 0.87, glucose 97, lactic acid 2.2, calcium 9.1, bilirubin 0.2, AST 10, ALT 88, alkaline phosphatase 77. Troponin less than 0.01. Albumin 3.8. Iron study shows low serum iron, high TIBC. CLINICAL IMPRESSION: 1. Symptomatic iron deficiency anemia. She was hospitalized in 2019 with chest pain. Even that time, she was mildly anemic with hemoglobin 9 g. The patient has symptomatic anemia. However, she has no history of weight loss, any rectal bleeding, melena, etc. 2. History of colon polyps, repeated polypectomy several times. 3. History of chronic acid reflux, on omeprazole. 4. Hypertension. 5. Diabetes. 6. Arthritis. 7. Status post AICD placement - pacemaker implant. I did talk to Ms. Pimentel who was not willing to have a transfusion. As she is symptomatic and also she has underlying heart disease, I did advise to have transfusion 1 unit. She agreed. PLAN: 1. Transfuse. 2. Serial H and H. 3. EGD and colonoscopy, hopefully on Monday. She already has regular diet today. Diet will be changed to clear liquid diet from tomorrow and then probably tomorrow afternoon, we will plan for EGD and colonoscopy on Monday morning. This was conveyed to the patient and she is very familiar with the colonoscopy as she has had multiple colonoscopies in the past. Job ID: [id number]
[2019-07-06 04:43] LABS: Hemoglobin 7.9 g/dL (12.0-16.0); Mean Corpuscular HGB CONC 31.4 g/dL (32.0-36.0); Mean Corpuscular Hemoglobin 23.8 pg (27.0-31.0); Mean Corpuscular Volume 75.8 fL (78.0-98.0); Mean Platelet Volume 8.9 fL (7.4-10.4); Platelet Count 302 thou/uL (130-400); Platelet Count 312 thou/uL (130-400); RBC Distribution Width 15.6 % (11.5-14.5); Red Blood Cell (RBC) Count 3.33 mill/uL (4.20-5.40); White Blood Cell (WBC) Count 7.7 thou/uL (4.8-10.8)
[2019-07-06] MEDS: Sodium Chloride 0.9% 1,000 ML IV SCH (05:25)
[2019-07-06] MEDS: Gabapentin 300 MG CAP PO SCH ×2 (08:41→21:34)
[2019-07-06] MEDS: Aspirin 325 MG TAB PO SCH (08:41)
[2019-07-06] MEDS: Potassium Chloride 10 MEQ TAB PO SCH (08:41)
[2019-07-06] MEDS: Carvedilol 6.25 MG TAB PO SCH ×2 (08:41→21:33)
[2019-07-06] MEDS: traMADol HCl 50 MG TAB PO SCH ×2 (08:41→21:33)
[2019-07-06 15:35] LABS: Hemoglobin 8.4 g/dL (12.0-16.0); Platelet Count 318 thou/uL (130-400)
--- NOTE | 2019-07-06 16:42 | PDOC.HOSPP ---
- Subjective Subjective: Received one unit of PRBC at night. No other issues at the present time. - Objective Vital Signs & Weight: Vital Signs (12 hours) Temp Pulse Resp BP BP BP BP 07/06/19 15:05 97.6 F 80 16 146/69 H 07/06/19 11:02 97.7 F 75 18 140/66 07/06/19 08:41 142/64 H 07/06/19 07:52 77 142/64 H 07/06/19 07:51 48 L 154/70 H 07/06/19 07:50 98.3 F 78 16 BP Pulse Ox 07/06/19 15:05 93 L 07/06/19 11:02 93 L 07/06/19 08:41 07/06/19 07:52 07/06/19 07:51 07/06/19 07:50 154/70 H 95 Weight Admit Weight 168 lb 11.2 oz Weight 168 lb 11.2 oz I&O: 07/05/19 07/06/19 07/07/19 06:59 06:59 06:59 Intake Total 480 3275 Output Total 650 1000 Balance -170 2275 Result Diagrams: 07/06/19 15:29 07/04/19 12:48 Additional Labs: Accuchecks 07/06/19 07/05/19 07/05/19 11:04 20:28 16:51 POC Glucose 91 151 H 86 Hospitalist ROS - Review of Systems All other systems reviewed; all pertinent +/- noted in HPI/Subj - Medication Medications: Active Medications Generic Name Dose Route Start Last Admin Trade Name Freq PRN Reason Stop Dose Admin Aspirin 325 mg 07/05/19 09:00 07/06/19 08:41 Aspirin PO 325 mg DAILY EAN Administration Atorvastatin Calcium 40 mg 07/05/19 21:00 07/05/19 20:22 Lipitor PO 40 mg HS EAN Administration Carvedilol 6.25 mg 07/05/19 09:00 07/06/19 08:41 Coreg PO 6.25 mg BID EAN Administration Gabapentin 600 mg 07/05/19 09:00 07/06/19 08:41 Neurontin PO 600 mg BID EAN Administration Sodium Chloride 1,000 mls @ 60 mls/hr 07/05/19 16:22 07/06/19 05:25 Normal Saline 0.9% IV 1,000 mls .[id number] EAN Administration Lisinopril 10 mg 07/05/19 21:00 07/05/19 20:23 Zestril PO 10 mg HS EAN Administration Ondansetron HCl 4 mg 07/04/19 21:53 07/06/19 05:29 Zofran Odt PO 4 mg Q8H PRN Administration Nausea/Vomiting Potassium Chloride 10 meq 07/05/19 09:00 07/06/19 08:41 Klor-Con 10 PO 10 meq DAILY EAN Administration Tramadol HCl 50 mg 07/05/19 09:00 07/06/19 08:41 Ultram PO 50 mg BID EAN Administration - Exam General Appearance: NAD, awake alert Eye: PERRL, anicteric sclera ENT: normocephalic atraumatic, no oropharyngeal lesions, moist mucosa Neck: supple, symmetric, no JVD, no thyromegaly, no lymphadenopathy, no carotid bruit Heart: RRR, no murmur, no gallops, no rubs, normal peripheral pulses Respiratory: CTAB, no wheezes, no rales, no ronchi, normal chest expansion, no tachypnea, normal percussion Gastrointestinal: soft, non-tender, non-distended, normal bowel sounds, no palpable masses, no hepatomegaly, no splenomegaly, no bruit Extremities: no cyanosis, no clubbing, no edema Skin: normal turgor, no lesions, no rashes Neurological: cranial nerve grossly intact, normal sensation to touch, no weakness, no focal deficits, no new deficit Musculoskeletal: normal tone, normal strength, no muscle wasting Psychiatric: normal affect, normal behavior, A&O x 3 Hosp A/P (1) Dehydration Code(s): E86.0 - DEHYDRATION Status: Acute (2) Microcytic anemia Code(s): D50.9 - IRON DEFICIENCY ANEMIA, UNSPECIFIED Status: Acute (3) Pacemaker Code(s): Z95.0 - PRESENCE OF CARDIAC PACEMAKER Status: Acute (4) DM type 2 (diabetes mellitus, type 2) Status: Acute (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 Discussed with patient need for further investigation given history of polyps in the past. May have occult bleeding Will consult GI to discuss further options with her Will discontinue IV fluids today Continue home medications, hold lasix for now She is unsure about transfusion of blood products, currently Hb is 7.1, will continue to trend. Disposition: Colonoscopy tomorrow. Coordinate further care with GI.
[2019-07-06] MEDS ORDERED: GoLYTELY 4,000 ml Bottle PO SCH (17:00)
--- NOTE | 2019-07-06 17:02 | PRG ---
DATE OF SERVICE: 07/06/2019 SUBJECTIVE: This is an 83-year-old female, hospitalized because of some symptomatic anemia. She was given 1 unit of blood yesterday. Her blood count is slightly up to 7.9 and hematocrit 25.3. Another CBC done this evening shows hemoglobin 8.4 and hematocrit 27.6. She has had no hematochezia. No melena. She is actually feeling better. OBJECTIVE: VITAL SIGNS: Afebrile, pulse is 80, and blood pressure is 146/69. CARDIOVASCULAR: Within normal limits. LUNGS: Within normal limits. ABDOMEN: Soft. No organomegaly. No tenderness. No masses. Bowel sounds normal. CLINICAL IMPRESSION: 1. Anemia, microcytic. 2. History of colon polyp. PLAN: EGD and colonoscopy tomorrow. Job ID: [id number]
[2019-07-06] MEDS: Atorvastatin Calcium 40 MG TAB PO SCH (21:33)
[2019-07-06] MEDS: Lisinopril 10 MG TAB PO SCH (21:34)
[2019-07-07 05:05] LABS: #Eosinphils 0.1 thou/uL (0.0-0.7); #Lymphocytes 2.1 thou/uL (1.20-3.40); #Monocytes 0.6 thou/uL (0.11-0.59); %Basophils 0.6 % (0.0-1.0); %Eosinophils 1.7 % (0.0-10.0); %Lymphocytes 26.7 % (21.0-51.0); Hemoglobin 7.9 g/dL (12.0-16.0); Mean Corpuscular HGB CONC 30.4 g/dL (32.0-36.0); Mean Corpuscular Hemoglobin 23.2 pg (27.0-31.0); Mean Corpuscular Volume 76.5 fL (78.0-98.0); Platelet Count 313 thou/uL (130-400); RBC Distribution Width 15.9 % (11.5-14.5); Red Blood Cell (RBC) Count 3.42 mill/uL (4.20-5.40)
[2019-07-07 05:22] LABS: Anion Gap 11 mmol/L (10-20); BUN (Urea Nitrogen) 8 mg/dL (9.8-20.1); Calc. Creatinine Clearance 69 mL/min (70-130); Calcium 8.6 mg/dL (7.8-10.44); Carbon Dioxide 27 mmol/L (23-31); Chloride 107 mmol/L (98-107); Estimated GFR-MDRD 77; Glucose 106 mg/dL (83-110); Potassium 3.6 mmol/L (3.5-5.1); Sodium 141 mmol/L (136-145)
[2019-07-07] MEDS: Gabapentin 300 MG CAP PO SCH (08:11)
[2019-07-07] MEDS: Carvedilol 6.25 MG TAB PO SCH (08:11)
[2019-07-07] MEDS: Aspirin 325 MG TAB PO SCH (08:11)
[2019-07-07] MEDS: Potassium Chloride 10 MEQ TAB PO SCH (08:12)
[2019-07-07] MEDS: traMADol HCl 50 MG TAB PO SCH (08:12)
[2019-07-07] MEDS ORDERED: PROPOFOL 200 MG/20 ML VIAL ONE (09:07)
[2019-07-07 15:31] VITALS: BP 153/69; TEMP 97.8
--- NOTE | 2019-07-07 17:11 | PDOC.BPN ---
- Brief Progress Note Discharge Patient Name: CHUYITA JAVED Date of : 1935 Patient Status: Observation Attending Provider: Martin Yuan Date: 07/07/19 17:08 Initialization Date: 07/07/19 17:08 Discharge - Disposition Disposition: HOME HEALTH - Patient Instructions Pre-Printed Education: Esophagogastroduodenoscopy, Care After Care Plan Goals: FOCUS: Transition from Acute Care after Discharge GOAL: Successful transition to care in the community YOUR TASKS: (1) review all information outlined in your discharge packet (2) follow any instructions outlined in your discharge packet (3) contact your primary care provider if you have questions or need additional assistance See patient discharge instruction sheet for detailed teaching. Patient verbalizes understanding of medications and is able to verbalize follow-up care. See Discharge Plan for additional discharge information. Patient secured in private vehicle prior to departure. - Referrals and PCP Follow-Up Referrals and PCP Follow-Up: [facility] [Other] Shandra Salas MD [Active] - (FOLLOW UP IN 3 WEEKS) Angela Lanier MD [Primary Care Provider] - - Nourishment Instructions Nourishment:: Regular Diet Course - Course Orders, Labs, Meds: Presenting with generalized body weakness and dehydration. Admitted for symptomatic anemia and dehydration with orthostatic positives. Shw was placed on IV fluids and given PRBC transfusion. Microctyci anemia seend on labs. Gastroenterology performed EGD and colonoscopy, no active bleeding detected; however, colonoscopy was unsuccessful. GI to do outpatient evaluation in 2 weeks. At time of discharge, patient back to baseline, no bleeding noted. Will follow up in outpatient. 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
--- NOTE | 2019-07-08 10:03 | OP ---
DATE OF PROCEDURE: 07/07/2019 PROCEDURE PERFORMED: Attempted colonoscopy, incomplete. Exam was done to about 30 cm from the anal margin , corresponding to sigmoid colon. PREOPERATIVE DIAGNOSIS: Iron deficiency anemia, history of multipe polyps. POSTOPERATIVE DIAGNOSES: Sigmoid diverticular disease, redundant colon. I could not locate the lumen to 30 cm from the anal margin. After trying nearly 30 minutes, I decided to start the procedure via risk of perforation with extensive diverticular disease. DESCRIPTION OF PROCEDURE: The patient was placed on her left lateral position and was given sedation by Anesthesia Department. A rectal exam was done before scope was advanced into the rectum. No lesions felt on rectal exam. A Pentax videocolonoscope was introduced into the rectum and advanced to a distance of about 30 to 32 cm from anal margin. The patient had very severe sigmoid diverticulosis. I could not really see the true lumen. This was tried for nearly about 20 to 30 minutes. Although abdominal compression was used, I could not really get past about 30 cm. I believe she has an obstruction by the lumen,but she had more of_ an acute angle, I could not really get passed it. The colon decompressed, and the scope removed. PLAN: I will talk to Ms. Pimentel and see if she wants to start clear liquid diet for 24 hours and may be another interior painter can try tomorrow. Another option is she can go home and come back as an outpatient for a redo colonoscopy. Job ID: [id number] MTDD
--- NOTE | 2019-07-08 10:10 | OP ---
DATE OF PROCEDURE: 07/07/2019 OPERATIVE PROCEDURES: 1. Esophagogastroduodenoscopy with biopsy. 2. Esophageal dilation with a balloon 15-18 mm to stage II for 2 minutes. PREOPERATIVE DIAGNOSES: Iron deficiency anemia, history of chronic reflux. POSTOPERATIVE DIAGNOSES: 1. 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 2. Numerous gastric polyps throughout the stomach. 3. Normal duodenum. DESCRIPTION OF PROCEDURE: The patient was placed on the left lateral position and was given sedation by Anesthesia Department. A Pentax video gastroscope under direct vision passed down the oropharynx, past the GE junction, into the stomach and subsequently into the descending duodenum. The patient appeared to have food coating in the esophageal mucosa over the mid esophagus and distal esophagus. There was a ring-like stricture and mild luminal narrowing in the distal esophagus. She had a hiatal hernia. Numerous polyps seen throughout the stomach and appears benign. Multiple biopsies obtained. In the fundus and cardia, no pathology. In the gastric antrum, no lesion seen. In the duodenal bulb, descending duodenum, no lesions seen. A Bard balloon size 15 to 18 mm passed through biopsy channel and placed into stomach. This was carefully withdrawn and placed in the GE junction This was inflated to stage I for 2 minutes and then stage II for 2 minutes. No evidence of any mucosal friability or oozing of blood seen.The stomach was decompressed and the scope removed. Job ID: [id number] [facility]
--- NOTE | 2019-07-08 11:28 | PRG ---
DATE OF SERVICE: 07/07/2019 This is an 83-year-old female, hospitalized with symptomatic anemia. She has been transfused. Last blood count is 7.9 of hemoglobin. An EGD showed multiple gastric polyps and esophageal stricture. A colonoscopy was attempted, but unsuccessful because of tortuous colon and_ extensive sigmoid diverticular disease. Initial plan was to repeat colonoscopy tomorrow. However, due to scheduling issue, cannot do until tomorrow evening. The patient had no active bleeding. I did talk to her giving her the option of having stay one day and having prep for colonoscopy versus going home and coming come back as outpatient in next 3 to 4 weeks. She is agreeable to go home and come back. I would recommend iron supplement and have her come and see me in 3 weeks time. I will plan to get a colonoscopy in next 3 to 4 weeks. Job ID: [id number] MTDD
== END 2019-07-07 18:16 | disposition home health service (06) ==
LOC: ERS 11:54 → 2SW 15:51
PROVIDERS: ADMIT Internal Medicine; ATTEND Internal Medicine
PROC: 0DJD8ZZ Inspection of Lower Intestinal Tract, Via Natural or Artificial Opening Endoscopic (ICD-10-PCS; principal; 2019-07-07)
PROC: 0DB68ZX Excision of Stomach, Via Natural or Artificial Opening Endoscopic, Diagnostic (ICD-10-PCS; 2019-07-07)
PROC: 0D748ZZ Dilation of Esophagogastric Junction, Via Natural or Artificial Opening Endoscopic (ICD-10-PCS; 2019-07-07)
DX: D50.9 Iron deficiency anemia, unspecified (principal); K22.2 Esophageal obstruction; K31.7 Polyp of stomach and duodenum; K44.9 Diaphragmatic hernia without obstruction or gangrene; K57.30 Diverticulosis of large intestine without perforation or abscess without bleeding; Q43.8 Other specified congenital malformations of intestine; E11.9 Type 2 diabetes mellitus without complications; I10 Essential (primary) hypertension; E86.0 Dehydration; R54 Age-related physical debility; K21.9 Gastro-esophageal reflux disease without esophagitis; I25.10 Atherosclerotic heart disease of native coronary artery without angina pectoris; M19.90 Unspecified osteoarthritis, unspecified site; Z86.010 Personal history of colon polyps; Z79.82 Long term (current) use of aspirin; Z79.899 Other long term (current) drug therapy; Z79.84 Long term (current) use of oral hypoglycemic drugs; Z95.810 Presence of automatic (implantable) cardiac defibrillator
CPT/HCPCS: 36430; 43239; 43249; 45330; 70450; 71045; 80048; 80053; 81003; 82274; 82550; 82962 ×3; 83540; 83550; 83605 ×2; 83690; 84484; 85007; 85014 ×2; 85018 ×2; 85025 ×3; 85027 ×2; 85046; 85049 ×2; 86850; 86900; 86901; 86920; 87040; 87804 ×2; 88305; 88312; 93005; 97116; 97139 ×2; 97530 ×2; 97535; 99285; P9016; 36415; 36416; 85060; 96360; 96361; G0378; J2704; Q0162

== ENCOUNTER 2020-07-29 00:30 | Emergency (ER) | payer MEDICARE | END 2020-07-29 04:39 | disposition home or self-care (01) | LOC: ERS 00:30 | DX: S60.512A Abrasion of left hand, initial encounter (principal); E11.9 Type 2 diabetes mellitus without complications; K21.9 Gastro-esophageal reflux disease without esophagitis; E78.00 Pure hypercholesterolemia, unspecified; I10 Essential (primary) hypertension; W18.30XA Fall on same level, unspecified, initial encounter; Z79.82 Long term (current) use of aspirin; Z79.899 Other long term (current) drug therapy; Z79.84 Long term (current) use of oral hypoglycemic drugs | CPT/HCPCS: 99283 ==

== ENCOUNTER 2020-10-06 21:49 | Inpatient (IN) | payer MEDICARE ==
[~2020-10-06 21:49] MED LIST: Iopamidol-370 76% 500 ML 1 ML ONE
[2020-10-06] MEDS ORDERED: Nitroglycerin 50 MG/250 ML BOT 250 ML ONE (21:58)
[2020-10-06] MEDS ORDERED: Amiodarone 150 MG/3 ML VIAL ONE (22:05)
[2020-10-06 22:08] LABS: Actual Bicarbonate (HCO3a) 20.3 mEq/L (22-28); Analyzer IN Cardio ER; Base Excess (BEa) -6.4 mEq/L (-2.0 to +3.0); CO2 Tension 44.8 mmHg (35.0-45.0); Calcium, Ionized (arterial) 1.09 mmol/L (1.12-1.30); Carboxyhemoglobin (COHb) 0.3 gm% (0.0-3.0); Hemoglobin (Hb) 12.9 g/dL (12.0-16.0); O2 Tension (PaO2), arterial 385.1 mmHg (> 60.0); Potassium - ABG Lab 3.58 mmol/L (3.70-5.30); pH, Arterial 7.27 (7.35-7.45)
[2020-10-06 22:10] LABS: #Basophils 0.1 thou/uL (0.0-0.2); #Eosinphils 0.2 thou/uL (0.0-0.7); #Lymphocytes 3.9 thou/uL (1.20-3.40); #Monocytes 0.5 thou/uL (0.11-0.59); #Neutrophils 4.1 thou/uL (1.40-6.50); %Basophils 0.9 % (0.0-1.0); %Eosinophils 2.4 % (0.0-10.0); %Lymphocytes 44.6 % (21.0-51.0); %Monocytes 5.1 % (0.0-10.0); Hemoglobin 12.4 g/dL (12.0-16.0); Mean Corpuscular HGB CONC 32.2 g/dL (32.0-36.0); Mean Corpuscular Hemoglobin 31.4 pg (27.0-31.0); Mean Corpuscular Volume 97.6 fL (78.0-98.0); Mean Platelet Volume 9.9 fL (7.4-10.4); Platelet Count 220 thou/uL (130-400); RBC Distribution Width 12.3 % (11.5-14.5); Red Blood Cell (RBC) Count 3.95 mill/uL (4.20-5.40); White Blood Cell (WBC) Count 8.8 thou/uL (4.8-10.8)
[2020-10-06 22:12] LABS: Puncture Site LRA
[2020-10-06] MEDS ORDERED: Amiodarone 150 MG, Admixture Fee 1 EACH in Dextrose 5% in Water 100 ML IVPB SCH (22:15)
[2020-10-06 22:19] LABS: ALT (SGPT) 13 U/L (8-55); AST (SGOT) 18 U/L (5-34); Albumin 3.5 g/dL (3.4-4.8); Alkaline Phosphatase 85 U/L (40-110); Anion Gap 19 mmol/L (10-20); BUN (Urea Nitrogen) 11 mg/dL (9.8-20.1); Bilirubin, Total 0.4 mg/dL (0.2-1.2); Calc. Creatinine Clearance 0 mL/min (70-130); Calcium 8.1 mg/dL (7.8-10.44); Carbon Dioxide 18 mmol/L (23-31); Chloride 104 mmol/L (98-107); Glucose 289 mg/dL (83-110); Potassium 4.2 mmol/L (3.5-5.1); Protein, Total 6.5 g/dL (5.8-8.1); Sodium 137 mmol/L (136-145)
[2020-10-06] MEDS ORDERED: Ondansetron PF 4 MG/2 ML Vial ONE (22:19)
[2020-10-06 22:27] LABS: Bilirubin Negative (Negative); Blood, Urine Negative (Negative); Clarity Clear (Clear); Glucose, Urine (Dipstick) Normal (Negative); Ketone, Urine Negative (Negative); Leukocyte Negative Leu/uL (Negative); Nitrite Negative (Negative); Protein, Urine (Dipstick) 10 mg/dL (Neg-Trace); Specific Gravity, Urine 1.011 (1.002-1.036); Urobilinogen Normal mg/dL (Less than 2); pH, Urine 6.5 (5.0-9.0)
[2020-10-06] MEDS ORDERED: Furosemide 40 MG/4 ML VIAL ONE (23:10)
[2020-10-06 23:17] LABS: SARS-CoV-2 NAA Rapid Test Not Detected (NotDetected)
[2020-10-06] MEDS ORDERED: HYDROcodone/Acetaminophen 5/325 mg Tablet PO PRN (23:48)
[2020-10-06] MEDS ORDERED: Ondansetron ODT 4 MG TAB PO PRN (23:48)
[2020-10-06] MEDS ORDERED: Ondansetron PF 4 MG/2 ML Vial IVP PRN (23:48)
[2020-10-06] MEDS ORDERED: Acetaminophen 325 MG TAB PO PRN (23:48)
[2020-10-07 02:05] LABS: Troponin I 0.044 ng/mL (< 0.028)
[2020-10-07] MEDS ORDERED: Amiodarone 450 MG in Dextrose 5% in Water 250 ML IVPB SCH (04:00)
[2020-10-07 04:02] VITALS: BMI 24.1
[2020-10-07 05:02] LABS: #Lymphocytes 1.1 thou/uL (1.20-3.40); #Monocytes 0.4 thou/uL (0.11-0.59); #Neutrophils 6.5 thou/uL (1.40-6.50); %Basophils 0.2 % (0.0-1.0); %Eosinophils 0.2 % (0.0-10.0); %Lymphocytes 13.1 % (21.0-51.0); %Monocytes 4.9 % (0.0-10.0); %Neutrophils 81.6 % (42.0-75.0); Hemoglobin 12.4 g/dL (12.0-16.0); Mean Corpuscular HGB CONC 32.8 g/dL (32.0-36.0); Mean Corpuscular Hemoglobin 31.5 pg (27.0-31.0); Mean Corpuscular Volume 95.8 fL (78.0-98.0); Platelet Count 188 thou/uL (130-400); RBC Distribution Width 12.3 % (11.5-14.5); Red Blood Cell (RBC) Count 3.94 mill/uL (4.20-5.40)
[2020-10-07 05:21] LABS: Anion Gap 19 mmol/L (10-20); BUN (Urea Nitrogen) 12 mg/dL (9.8-20.1); Calc. Creatinine Clearance 54 mL/min (70-130); Calcium 8.4 mg/dL (7.8-10.44); Carbon Dioxide 24 mmol/L (23-31); Chloride 100 mmol/L (98-107); Glucose 105 mg/dL (83-110); Potassium 3.6 mmol/L (3.5-5.1); Sodium 139 mmol/L (136-145)
[2020-10-07 05:27] LABS: Troponin I 0.041 ng/mL (< 0.028)
[2020-10-07] MEDS ORDERED: Non-Formulary Item 1 EACH (Ondansetron Hcl [Zofran] 4 MG Tab) PO PRN (07:22)
[2020-10-07] MEDS ORDERED: diphenhydrAMINE 25 MG CAP PO PRN (07:22)
[2020-10-07] MEDS ORDERED: Furosemide 40 MG/4 ML VIAL SLOW IVP SCH (07:30)
[2020-10-07] MEDS ORDERED: Ondansetron ODT 4 MG TAB PO PRN (07:49)
[2020-10-07] MEDS: Cyanocobalamin (Vitamin B-12) 1,000 MCG TAB PO SCH (08:48)
[2020-10-07] MEDS: metFORMIN 500 MG TAB PO SCH ×2 (08:48→17:41)
[2020-10-07] MEDS: Gabapentin 300 MG CAP PO SCH ×2 (08:48→20:03)
[2020-10-07] MEDS: Aspirin 325 MG TAB PO SCH (08:49)
[2020-10-07] MEDS: Carvedilol 6.25 MG TAB PO SCH ×2 (08:49→20:02)
[2020-10-07] MEDS: Enoxaparin Sodium 40 MG/0.4 ML SYRINGE SC SCH (08:50)
[2020-10-07] MEDS: Folic Acid 1 MG TAB PO SCH (08:50)
[2020-10-07] MEDS ORDERED: [UNRECOGNIZED DRUG - OTHER] PO SCH (09:00)
[2020-10-07] MEDS ORDERED: CRANBERRY 500 MG PO SCH (09:00)
[2020-10-07] MEDS ORDERED: Gabapentin 300 MG CAP PO SCH (09:00)
[2020-10-07] MEDS ORDERED: CYANOCOBALAMIN PO SCH (09:00)
[2020-10-07] MEDS ORDERED: OMEPRAZOLE 20 MG PO SCH (09:00)
[2020-10-07] MEDS ORDERED: FOLIC ACID PO SCH (09:00)
[2020-10-07] MEDS: Furosemide 40 MG/4 ML VIAL SLOW IVP SCH (15:28)
[2020-10-07] MEDS ORDERED: Potassium Chloride 20 MEQ TAB PO SCH (18:30)
[2020-10-07] MEDS ORDERED: Spironolactone 25 MG TAB PO SCH (18:30)
[2020-10-07] MEDS: Atorvastatin Calcium 40 MG TAB PO SCH (20:02)
[2020-10-07] MEDS: Amiodarone 200 MG TAB PO SCH (20:02)
[2020-10-07] MEDS ORDERED: Lisinopril 10 MG TAB PO SCH (21:00)
[2020-10-08 04:44] LABS: #Basophils 0.1 thou/uL (0.0-0.2); #Eosinphils 0.1 thou/uL (0.0-0.7); #Lymphocytes 2.5 thou/uL (1.20-3.40); #Monocytes 0.5 thou/uL (0.11-0.59); #Neutrophils 3.6 thou/uL (1.40-6.50); %Basophils 1.1 % (0.0-1.0); %Eosinophils 1.7 % (0.0-10.0); %Lymphocytes 37.1 % (21.0-51.0); %Monocytes 7.8 % (0.0-10.0); %Neutrophils 52.3 % (42.0-75.0); Hemoglobin 12.5 g/dL (12.0-16.0); Mean Corpuscular HGB CONC 33.1 g/dL (32.0-36.0); Mean Corpuscular Hemoglobin 31.6 pg (27.0-31.0); Mean Corpuscular Volume 95.3 fL (78.0-98.0); Mean Platelet Volume 9.6 fL (7.4-10.4); Platelet Count 183 thou/uL (130-400); RBC Distribution Width 12.4 % (11.5-14.5); Red Blood Cell (RBC) Count 3.95 mill/uL (4.20-5.40); White Blood Cell (WBC) Count 6.9 thou/uL (4.8-10.8)
[2020-10-08] MEDS: Furosemide 40 MG/4 ML VIAL SLOW IVP SCH ×2 (05:09→15:08)
[2020-10-08 05:14] LABS: Anion Gap 14 mmol/L (10-20); BUN (Urea Nitrogen) 15 mg/dL (9.8-20.1); Calc. Creatinine Clearance 58 mL/min (70-130); Calcium 8.7 mg/dL (7.8-10.44); Carbon Dioxide 30 mmol/L (23-31); Chloride 96 mmol/L (98-107); Glucose 89 mg/dL (83-110); Magnesium 1.3 mg/dL (1.6-2.6); Potassium 3.3 mmol/L (3.5-5.1); Sodium 137 mmol/L (136-145)
[2020-10-08] MEDS ORDERED: Potassium Chloride 20 MEQ TAB PO SCH (07:30)
[2020-10-08] MEDS: Folic Acid 1 MG TAB PO SCH (08:10)
[2020-10-08] MEDS: Gabapentin 300 MG CAP PO SCH ×2 (08:10→21:35)
[2020-10-08] MEDS: Cyanocobalamin (Vitamin B-12) 1,000 MCG TAB PO SCH (08:10)
[2020-10-08] MEDS: Enoxaparin Sodium 40 MG/0.4 ML SYRINGE SC SCH (08:11)
[2020-10-08] MEDS: Carvedilol 6.25 MG TAB PO SCH ×2 (08:11→21:35)
[2020-10-08] MEDS: metFORMIN 500 MG TAB PO SCH ×2 (08:11→17:50)
[2020-10-08] MEDS: Amiodarone 200 MG TAB PO SCH ×2 (08:11→21:35)
[2020-10-08] MEDS: Aspirin 325 MG TAB PO SCH (08:11)
[2020-10-08] MEDS: Spironolactone 25 MG TAB PO SCH (08:11)
[2020-10-08] MEDS: Atorvastatin Calcium 40 MG TAB PO SCH (21:35)
[2020-10-08] MEDS: Melatonin 3 MG TAB PO PRN (23:16)
[2020-10-09 04:50] LABS: #Lymphocytes 1.7 thou/uL (1.20-3.40); #Monocytes 0.6 thou/uL (0.11-0.59); #Neutrophils 5.4 thou/uL (1.40-6.50); %Basophils 0.3 % (0.0-1.0); %Eosinophils 0.5 % (0.0-10.0); %Lymphocytes 21.6 % (21.0-51.0); %Monocytes 7.4 % (0.0-10.0); %Neutrophils 70.2 % (42.0-75.0); Hemoglobin 13.5 g/dL (12.0-16.0); Mean Corpuscular HGB CONC 32.8 g/dL (32.0-36.0); Mean Corpuscular Hemoglobin 31.1 pg (27.0-31.0); Mean Platelet Volume 9.8 fL (7.4-10.4); Platelet Count 225 thou/uL (130-400); RBC Distribution Width 12.5 % (11.5-14.5); Red Blood Cell (RBC) Count 4.32 mill/uL (4.20-5.40); White Blood Cell (WBC) Count 7.7 thou/uL (4.8-10.8)
[2020-10-09 05:09] LABS: Anion Gap 16 mmol/L (10-20); BUN (Urea Nitrogen) 21 mg/dL (9.8-20.1); Calc. Creatinine Clearance 52 mL/min (70-130); Calcium 9.1 mg/dL (7.8-10.44); Carbon Dioxide 27 mmol/L (23-31); Chloride 94 mmol/L (98-107); Glucose 122 mg/dL (83-110); Potassium 3.8 mmol/L (3.5-5.1); Sodium 133 mmol/L (136-145)
[2020-10-09] MEDS: Furosemide 40 MG/4 ML VIAL SLOW IVP SCH (05:48)
[2020-10-09] MEDS ORDERED: Potassium Chloride 20 MEQ TAB PO SCH (09:15)
[2020-10-09] MEDS: metFORMIN 500 MG TAB PO SCH ×2 (09:24→17:28)
[2020-10-09] MEDS: Amiodarone 200 MG TAB PO SCH ×2 (09:25→20:29)
[2020-10-09] MEDS: Spironolactone 25 MG TAB PO SCH (09:25)
[2020-10-09] MEDS: Enoxaparin Sodium 40 MG/0.4 ML SYRINGE SC SCH (09:26)
[2020-10-09] MEDS: Carvedilol 6.25 MG TAB PO SCH ×2 (09:26→20:28)
[2020-10-09] MEDS: Cyanocobalamin (Vitamin B-12) 1,000 MCG TAB PO SCH (09:26)
[2020-10-09] MEDS: Folic Acid 1 MG TAB PO SCH (09:26)
[2020-10-09] MEDS: Gabapentin 300 MG CAP PO SCH ×2 (09:27→20:27)
[2020-10-09] MEDS: Sacubitril 49 MG/Valsartan 51 MG TABLET PO SCH ×2 (09:28→20:28)
[2020-10-09] MEDS: Aspirin 325 MG TAB PO SCH (10:47)
[2020-10-09] MEDS ORDERED: Furosemide 20 MG TAB PO SCH (14:00)
[2020-10-09] MEDS ORDERED: Electrolyte Replacement Protocol 1 EACH FS SCH (18:15)
[2020-10-09] MEDS ORDERED: Dextrose 50% Abboject 50 ML SYRINGE SLOW IVP PRN (18:36)
[2020-10-09] MEDS ORDERED: Insulin Regular 300 UNITS/3 ML VIAL SC PRN ×2 (18:36)
[2020-10-09] MEDS ORDERED: Dextrose 5% in Water 1,000 ML IV PRN (18:36)
[2020-10-09] MEDS ORDERED: Electrolyte Replacement Protocol FS PRN (19:00)
[2020-10-09] MEDS: Atorvastatin Calcium 40 MG TAB PO SCH (20:30)
[2020-10-09] MEDS ORDERED: Magnesium 2 GM/50 ML 2 GM in Premix Bag 1 BAG IVPB SCH (22:00)
[2020-10-10 04:47] LABS: #Basophils 0.1 thou/uL (0.0-0.2); #Lymphocytes 2.5 thou/uL (1.20-3.40); #Monocytes 0.6 thou/uL (0.11-0.59); #Neutrophils 5.2 thou/uL (1.40-6.50); %Basophils 0.7 % (0.0-1.0); %Eosinophils 0.5 % (0.0-10.0); %Lymphocytes 29.5 % (21.0-51.0); %Monocytes 7.2 % (0.0-10.0); %Neutrophils 62.1 % (42.0-75.0); Hemoglobin 13.8 g/dL (12.0-16.0); Mean Corpuscular HGB CONC 32.4 g/dL (32.0-36.0); Mean Corpuscular Hemoglobin 31.1 pg (27.0-31.0); Mean Platelet Volume 10.8 fL (7.4-10.4); Platelet Count 215 thou/uL (130-400); RBC Distribution Width 12.4 % (11.5-14.5); Red Blood Cell (RBC) Count 4.44 mill/uL (4.20-5.40); White Blood Cell (WBC) Count 8.4 thou/uL (4.8-10.8)
[2020-10-10 05:05] LABS: Anion Gap 16 mmol/L (10-20); BUN (Urea Nitrogen) 25 mg/dL (9.8-20.1); Calc. Creatinine Clearance 46 mL/min (70-130); Carbon Dioxide 31 mmol/L (23-31); Chloride 91 mmol/L (98-107); Glucose 116 mg/dL (83-110); Magnesium 2.1 mg/dL (1.6-2.6); Phosphorus 3.6 mg/dL (2.3-4.7); Potassium 4.6 mmol/L (3.5-5.1); Sodium 133 mmol/L (136-145)
[2020-10-10] MEDS: Enoxaparin Sodium 40 MG/0.4 ML SYRINGE SC SCH (08:56)
[2020-10-10] MEDS: Aspirin Chewable 81 MG TAB PO SCH (08:57)
[2020-10-10] MEDS: metFORMIN 500 MG TAB PO SCH ×2 (08:57→17:20)
[2020-10-10] MEDS: Gabapentin 300 MG CAP PO SCH ×2 (08:57→21:44)
[2020-10-10] MEDS: Amiodarone 200 MG TAB PO SCH (08:57)
[2020-10-10] MEDS: Folic Acid 1 MG TAB PO SCH (08:57)
[2020-10-10] MEDS: Sacubitril 49 MG/Valsartan 51 MG TABLET PO SCH ×2 (08:57→21:47)
[2020-10-10] MEDS: Carvedilol 6.25 MG TAB PO SCH ×2 (08:57→21:44)
[2020-10-10] MEDS: Spironolactone 25 MG TAB PO SCH (08:58)
[2020-10-10] MEDS: Furosemide 20 MG TAB PO SCH (08:58)
[2020-10-10] MEDS: Cyanocobalamin (Vitamin B-12) 1,000 MCG TAB PO SCH (08:58)
[2020-10-10] MEDS: Atorvastatin Calcium 40 MG TAB PO SCH (21:44)
[2020-10-11] MEDS ORDERED: Magnesium 2 GM/50 ML 2 GM in Premix Bag 1 BAG IVPB SCH (05:30)
[2020-10-11] MEDS: Sacubitril 49 MG/Valsartan 51 MG TABLET PO SCH ×2 (08:26→20:18)
[2020-10-11] MEDS: Aspirin Chewable 81 MG TAB PO SCH (08:26)
[2020-10-11] MEDS: Cyanocobalamin (Vitamin B-12) 1,000 MCG TAB PO SCH (08:27)
[2020-10-11] MEDS: Spironolactone 25 MG TAB PO SCH (08:27)
[2020-10-11] MEDS: Furosemide 20 MG TAB PO SCH (08:27)
[2020-10-11] MEDS: metFORMIN 500 MG TAB PO SCH ×2 (08:27→16:30)
[2020-10-11] MEDS: Carvedilol 6.25 MG TAB PO SCH ×2 (08:27→20:20)
[2020-10-11] MEDS: Gabapentin 300 MG CAP PO SCH ×2 (08:27→20:19)
[2020-10-11] MEDS: Folic Acid 1 MG TAB PO SCH (08:27)
[2020-10-11] MEDS: Enoxaparin Sodium 40 MG/0.4 ML SYRINGE SC SCH (08:28)
[2020-10-11] MEDS: Amiodarone 200 MG TAB PO SCH (08:28)
[2020-10-11] MEDS: Atorvastatin Calcium 40 MG TAB PO SCH (20:20)
[2020-10-12] MEDS: Gabapentin 300 MG CAP PO SCH ×2 (08:10→21:23)
[2020-10-12] MEDS: Furosemide 20 MG TAB PO SCH (08:10)
[2020-10-12] MEDS: Aspirin Chewable 81 MG TAB PO SCH (08:10)
[2020-10-12] MEDS: Sacubitril 49 MG/Valsartan 51 MG TABLET PO SCH ×2 (08:10→21:23)
[2020-10-12] MEDS: Cyanocobalamin (Vitamin B-12) 1,000 MCG TAB PO SCH (08:10)
[2020-10-12] MEDS: Amiodarone 200 MG TAB PO SCH (08:10)
[2020-10-12] MEDS: Spironolactone 25 MG TAB PO SCH (08:11)
[2020-10-12] MEDS: metFORMIN 500 MG TAB PO SCH ×2 (08:11→17:57)
[2020-10-12] MEDS: Folic Acid 1 MG TAB PO SCH (08:11)
[2020-10-12] MEDS: Carvedilol 6.25 MG TAB PO SCH ×2 (08:11→21:23)
[2020-10-12] MEDS: Enoxaparin Sodium 40 MG/0.4 ML SYRINGE SC SCH (08:11)
[2020-10-12] MEDS ORDERED: Gentamicin 80 MG/2 ML VIAL ONE (15:48)
[2020-10-12] MEDS ORDERED: Lidocaine 1% (PF) 30 ML VIAL ONE (15:48)
[2020-10-12] MEDS ORDERED: CEFAZOLIN 1 GM VIAL ONE (15:48)
[2020-10-12] MEDS ORDERED: Midazolam HCl 2 mg/2 ml Vial ONE (16:37)
[2020-10-12] MEDS ORDERED: Fentanyl 100 MCG/2 ML VIAL ONE (16:37)
[2020-10-12] MEDS: Atorvastatin Calcium 40 MG TAB PO SCH (21:23)
[2020-10-12] MEDS: Cephalexin 250 MG CAP PO SCH (21:24)
[2020-10-13] MEDS: Spironolactone 25 MG TAB PO SCH (08:42)
[2020-10-13] MEDS: metFORMIN 500 MG TAB PO SCH ×2 (08:42→17:12)
[2020-10-13] MEDS: Sacubitril 49 MG/Valsartan 51 MG TABLET PO SCH ×2 (08:43→20:11)
[2020-10-13] MEDS: Cyanocobalamin (Vitamin B-12) 1,000 MCG TAB PO SCH (08:43)
[2020-10-13] MEDS: Cephalexin 250 MG CAP PO SCH ×3 (08:43→20:12)
[2020-10-13] MEDS: Aspirin Chewable 81 MG TAB PO SCH (08:43)
[2020-10-13] MEDS: Folic Acid 1 MG TAB PO SCH (08:43)
[2020-10-13] MEDS: Amiodarone 200 MG TAB PO SCH (08:43)
[2020-10-13] MEDS: Gabapentin 300 MG CAP PO SCH ×2 (08:43→20:12)
[2020-10-13] MEDS: Furosemide 20 MG TAB PO SCH (08:44)
[2020-10-13] MEDS: Carvedilol 6.25 MG TAB PO SCH ×2 (08:44→20:11)
[2020-10-13] MEDS: Enoxaparin Sodium 40 MG/0.4 ML SYRINGE SC SCH (08:45)
[2020-10-13] MEDS: Atorvastatin Calcium 40 MG TAB PO SCH (20:12)
[2020-10-14] MEDS: Sacubitril 49 MG/Valsartan 51 MG TABLET PO SCH ×2 (08:19→20:25)
[2020-10-14] MEDS: Amiodarone 200 MG TAB PO SCH (08:20)
[2020-10-14] MEDS: Cyanocobalamin (Vitamin B-12) 1,000 MCG TAB PO SCH (08:20)
[2020-10-14] MEDS: Carvedilol 6.25 MG TAB PO SCH ×2 (08:20→20:26)
[2020-10-14] MEDS: Furosemide 20 MG TAB PO SCH (08:20)
[2020-10-14] MEDS: Aspirin Chewable 81 MG TAB PO SCH (08:20)
[2020-10-14] MEDS: metFORMIN 500 MG TAB PO SCH ×2 (08:20→16:25)
[2020-10-14] MEDS: Enoxaparin Sodium 40 MG/0.4 ML SYRINGE SC SCH (08:21)
[2020-10-14] MEDS: Gabapentin 300 MG CAP PO SCH ×2 (08:21→20:26)
[2020-10-14] MEDS: Cephalexin 250 MG CAP PO SCH ×3 (08:21→20:26)
[2020-10-14] MEDS: Folic Acid 1 MG TAB PO SCH (08:21)
[2020-10-14] MEDS: Spironolactone 25 MG TAB PO SCH (08:21)
[2020-10-14] MEDS: Melatonin 3 MG TAB PO PRN (20:25)
[2020-10-14] MEDS: Atorvastatin Calcium 40 MG TAB PO SCH (20:27)
[2020-10-15] MEDS: metFORMIN 500 MG TAB PO SCH ×2 (08:56→16:47)
[2020-10-15] MEDS: Amiodarone 200 MG TAB PO SCH (08:56)
[2020-10-15] MEDS: Aspirin Chewable 81 MG TAB PO SCH (08:57)
[2020-10-15] MEDS: Cephalexin 250 MG CAP PO SCH ×2 (08:58→14:27)
[2020-10-15] MEDS: Gabapentin 300 MG CAP PO SCH (08:58)
[2020-10-15] MEDS: Folic Acid 1 MG TAB PO SCH (08:58)
[2020-10-15] MEDS: Cyanocobalamin (Vitamin B-12) 1,000 MCG TAB PO SCH (08:58)
[2020-10-15] MEDS: Enoxaparin Sodium 40 MG/0.4 ML SYRINGE SC SCH (08:58)
[2020-10-15] MEDS: Spironolactone 25 MG TAB PO SCH (14:26)
[2020-10-15] MEDS: Carvedilol 6.25 MG TAB PO SCH (14:26)
[2020-10-15] MEDS: Furosemide 20 MG TAB PO SCH (14:27)
[2020-10-15] MEDS: Sacubitril 49 MG/Valsartan 51 MG TABLET PO SCH (14:27)
[2020-10-15 15:37] VITALS: BP 110/61; TEMP 97.6
== END 2020-10-15 17:13 | DRG 245 ==
LOC: ERS 21:49 → 2NO 22:54
PROVIDERS: ADMIT Student in an Organized Health Care Education/Training Program; ATTEND Internal Medicine
PROC: 5A09357 Assistance with Respiratory Ventilation, Less than 24 Consecutive Hours, Continuous Positive Airway Pressure (ICD-10-PCS; principal; 2020-10-06)
PROC: 4B02XTZ Measurement of Cardiac Defibrillator, External Approach (ICD-10-PCS; 2020-10-12)
PROC: 0JH609Z Insertion of Cardiac Resynchronization Defibrillator Pulse Generator into Chest Subcutaneous Tissue and Fascia, Open Approach (ICD-10-PCS; 2020-10-12)
PROC: 0JPT0PZ Removal of Cardiac Rhythm Related Device from Trunk Subcutaneous Tissue and Fascia, Open Approach (ICD-10-PCS; 2020-10-12)
DX: I13.0 Hypertensive heart and chronic kidney disease with heart failure and stage 1 through stage 4 chronic kidney disease, or unspecified chronic kidney disease (principal); G93.41 Metabolic encephalopathy; I50.23 Acute on chronic systolic (congestive) heart failure; J96.21 Acute and chronic respiratory failure with hypoxia; E87.1 Hypo-osmolality and hyponatremia; I16.1 Hypertensive emergency; I47.2 Ventricular tachycardia; I42.0 Dilated cardiomyopathy; Z20.822 Contact with and (suspected) exposure to COVID-19; E87.6 Hypokalemia; I25.10 Atherosclerotic heart disease of native coronary artery without angina pectoris; K21.9 Gastro-esophageal reflux disease without esophagitis; E78.00 Pure hypercholesterolemia, unspecified; Z96.653 Presence of artificial knee joint, bilateral; D64.9 Anemia, unspecified; Z60.2 Problems related to living alone; I49.3 Ventricular premature depolarization; I08.3 Combined rheumatic disorders of mitral, aortic and tricuspid valves; N18.2 Chronic kidney disease, stage 2 (mild); E11.22 Type 2 diabetes mellitus with diabetic chronic kidney disease; I44.7 Left bundle-branch block, unspecified; E66.01 Morbid (severe) obesity due to excess calories; T50.1X5A Adverse effect of loop [high-ceiling] diuretics, initial encounter; E83.42 Hypomagnesemia; Z95.810 Presence of automatic (implantable) cardiac defibrillator; Z88.5 Allergy status to narcotic agent; Z90.49 Acquired absence of other specified parts of digestive tract; Z90.710 Acquired absence of both cervix and uterus; Z68.23 Body mass index [BMI] 23.0-23.9, adult; Z79.82 Long term (current) use of aspirin; Z79.84 Long term (current) use of oral hypoglycemic drugs; Z79.899 Other long term (current) drug therapy; Z82.49 Family history of ischemic heart disease and other diseases of the circulatory system; I25.5 Ischemic cardiomyopathy
CPT/HCPCS: 0240U; 33263; 36415; 36416; 36600; 51702; 70450; 71045; 71275; 80048; 80053; 81003; 82805; 83735; 83880; 84100; 84484; 85025; 85379; 93005; 93306; 96365; 96366; 96375; 96376; 97139; 99152; C1882; J0282; J0690; J1580; J1650; J1940; J2001; J2250; J2405; J3010; J3475; J7070; Q0162; Q9967

== ENCOUNTER 2020-12-20 15:21 | Emergency (ER) | payer MEDICARE ==
[2020-12-20 16:25] LABS: #Eosinphils 0.1 thou/uL (0.0-0.7); #Lymphocytes 1.5 thou/uL (1.20-3.40); #Monocytes 0.5 thou/uL (0.11-0.59); #Neutrophils 3.3 thou/uL (1.40-6.50); %Basophils 0.4 % (0.0-1.0); %Lymphocytes 28.4 % (21.0-51.0); %Monocytes 8.6 % (0.0-10.0); %Neutrophils 61.6 % (42.0-75.0); Hemoglobin 13.5 g/dL (12.0-16.0); Mean Corpuscular HGB CONC 32.6 g/dL (32.0-36.0); Mean Corpuscular Hemoglobin 31.9 pg (27.0-31.0); Mean Corpuscular Volume 97.9 fL (78.0-98.0); Mean Platelet Volume 8.7 fL (7.4-10.4); Platelet Count 292 thou/uL (130-400); RBC Distribution Width 12.8 % (11.5-14.5); Red Blood Cell (RBC) Count 4.25 mill/uL (4.20-5.40); White Blood Cell (WBC) Count 5.4 thou/uL (4.8-10.8)
[2020-12-20 16:45] LABS: ALT (SGPT) 15 U/L (8-55); AST (SGOT) 21 U/L (5-34); Albumin 3.9 g/dL (3.4-4.8); Alkaline Phosphatase 109 U/L (40-110); Anion Gap 17 mmol/L (10-20); BUN (Urea Nitrogen) 20 mg/dL (9.8-20.1); Bilirubin, Total 0.7 mg/dL (0.2-1.2); Calc. Creatinine Clearance 0 mL/min (70-130); Calcium 9.4 mg/dL (7.8-10.44); Carbon Dioxide 25 mmol/L (23-31); Chloride 99 mmol/L (98-107); Globulin 3.2 g/dL (2.4-3.5); Glucose 93 mg/dL (83-110); Lipase 10 U/L (8-78); Potassium 4.3 mmol/L (3.5-5.1); Protein, Total 7.1 g/dL (5.8-8.1); Sodium 137 mmol/L (136-145)
== END 2020-12-20 18:13 ==
LOC: ERS 15:21
DX: I10 Essential (primary) hypertension (principal); K21.9 Gastro-esophageal reflux disease without esophagitis; E78.00 Pure hypercholesterolemia, unspecified; Z79.82 Long term (current) use of aspirin; Z79.84 Long term (current) use of oral hypoglycemic drugs; Z79.899 Other long term (current) drug therapy
CPT/HCPCS: 36415; 71045; 80053; 83690; 84484; 85025; 93005

== ENCOUNTER 2021-07-08 11:03 | Emergency (ER) | payer MEDICARE ==
[2021-07-08 14:43] LABS: Hemoglobin 12.6 g/dL (12.0-16.0); Mean Corpuscular Hemoglobin 31.4 pg (27.0-31.0); Mean Corpuscular Volume 96.4 fL (78.0-98.0); Red Blood Cell (RBC) Count 4.01 mill/uL (4.20-5.40); White Blood Cell (WBC) Count 8.1 thou/uL (4.8-10.8)
[2021-07-08 14:44] LABS: #Eosinphils 0.1 thou/uL (0.0-0.7); #Lymphocytes 1.4 thou/uL (1.20-3.40); #Monocytes 0.6 thou/uL (0.11-0.59); %Basophils 0.4 % (0.0-1.0); %Eosinophils 0.9 % (0.0-10.0); %Monocytes 6.9 % (0.0-10.0); %Neutrophils 74.8 % (42.0-75.0); Mean Corpuscular HGB CONC 32.5 g/dL (32.0-36.0); Mean Platelet Volume 7.9 fL (7.4-10.4); Platelet Count 299 thou/uL (130-400); RBC Distribution Width 12.9 % (11.5-14.5)
[2021-07-08 15:08] LABS: ALT (SGPT) 23 U/L (8-55); AST (SGOT) 24 U/L (5-34); Albumin 3.8 g/dL (3.4-4.8); Alkaline Phosphatase 99 U/L (40-110); Anion Gap 16 mmol/L (10-20); BUN (Urea Nitrogen) 17 mg/dL (9.8-20.1); Bilirubin, Total 0.3 mg/dL (0.2-1.2); Calc. Creatinine Clearance 0 mL/min (70-130); Calcium 9.1 mg/dL (7.8-10.44); Carbon Dioxide 24 mmol/L (23-31); Chloride 99 mmol/L (98-107); Globulin 3.5 g/dL (2.4-3.5); Glucose 97 mg/dL (83-110); Lipase 12 U/L (8-78); Potassium 4.7 mmol/L (3.5-5.1); Protein, Total 7.3 g/dL (5.8-8.1); Sodium 134 mmol/L (136-145)
== END 2021-07-08 19:22 | disposition home or self-care (01) ==
LOC: ERS 11:03
DX: K56.41 Fecal impaction (principal); I10 Essential (primary) hypertension; K21.9 Gastro-esophageal reflux disease without esophagitis; E78.00 Pure hypercholesterolemia, unspecified
CPT/HCPCS: 36415; 74177; 80053; 83690; 85025

== ENCOUNTER 2021-07-31 19:28 | Observation (INO) | payer MEDICARE ==
[2021-07-31 19:55] LABS: #Eosinphils 0.1 thou/uL (0.0-0.7); #Monocytes 0.6 thou/uL (0.11-0.59); #Neutrophils 2.7 thou/uL (1.40-6.50); %Basophils 0.3 % (0.0-1.0); %Eosinophils 2.6 % (0.0-10.0); %Lymphocytes 36.4 % (21.0-51.0); %Monocytes 10.7 % (0.0-10.0); Mean Corpuscular HGB CONC 32.4 g/dL (32.0-36.0); Mean Corpuscular Volume 95.8 fL (78.0-98.0); Mean Platelet Volume 7.6 fL (7.4-10.4); Platelet Count 298 thou/uL (130-400); RBC Distribution Width 12.7 % (11.5-14.5); Red Blood Cell (RBC) Count 3.87 mill/uL (4.20-5.40); White Blood Cell (WBC) Count 5.4 thou/uL (4.8-10.8)
[2021-07-31 20:18] LABS: ALT (SGPT) 18 U/L (8-55); AST (SGOT) 18 U/L (5-34); Albumin 3.7 g/dL (3.4-4.8); Alkaline Phosphatase 86 U/L (40-110); Anion Gap 14 mmol/L (10-20); BUN (Urea Nitrogen) 15 mg/dL (9.8-20.1); Bilirubin, Total 0.2 mg/dL (0.2-1.2); Calc. Creatinine Clearance 0 mL/min (70-130); Calcium 8.6 mg/dL (7.8-10.44); Carbon Dioxide 25 mmol/L (23-31); Chloride 102 mmol/L (98-107); Globulin 3.2 g/dL (2.4-3.5); Glucose 116 mg/dL (83-110); Potassium 3.8 mmol/L (3.5-5.1); Protein, Total 6.9 g/dL (5.8-8.1); Sodium 137 mmol/L (136-145)
[2021-07-31] MEDS ORDERED: Nitrazine Tape 1 ROLL ONE ×2 (21:10→21:12)
[2021-07-31] MEDS ORDERED: Nitroglycerin 2% Ointment 1 INCH/1 GM Packet ONE (21:12)
[2021-07-31 23:39] LABS: Troponin I Less than 0.010 ng/mL (< 0.028)
[2021-08-01 00:09] VITALS: BMI 28.8
[2021-08-01] MEDS ORDERED: Acetaminophen 325 MG TAB PO PRN (02:06)
[2021-08-01] MEDS ORDERED: Senokot S 8.6-50 MG TAB PO PRN (02:06)
[2021-08-01] MEDS ORDERED: Ondansetron PF 4 MG/2 ML Vial IVP PRN (02:06)
[2021-08-01] MEDS ORDERED: Enoxaparin Sodium 40 MG/0.4 ML SYRINGE SC SCH ×2 (02:30→21:00)
[2021-08-01 05:40] LABS: #Eosinphils 0.2 thou/uL (0.0-0.7); #Lymphocytes 2.4 thou/uL (1.20-3.40); #Monocytes 0.6 thou/uL (0.11-0.59); #Neutrophils 3.1 thou/uL (1.40-6.50); %Basophils 0.7 % (0.0-1.0); %Eosinophils 3.2 % (0.0-10.0); %Lymphocytes 37.9 % (21.0-51.0); %Monocytes 8.9 % (0.0-10.0); %Neutrophils 49.3 % (42.0-75.0); Hemoglobin 11.3 g/dL (12.0-16.0); Mean Corpuscular HGB CONC 32.3 g/dL (32.0-36.0); Mean Corpuscular Hemoglobin 30.4 pg (27.0-31.0); Platelet Count 270 thou/uL (130-400); RBC Distribution Width 12.6 % (11.5-14.5); Red Blood Cell (RBC) Count 3.72 mill/uL (4.20-5.40); White Blood Cell (WBC) Count 6.3 thou/uL (4.8-10.8)
[2021-08-01 06:08] LABS: ALT (SGPT) 17 U/L (8-55); AST (SGOT) 17 U/L (5-34); Albumin 3.5 g/dL (3.4-4.8); Alkaline Phosphatase 82 U/L (40-110); Anion Gap 12 mmol/L (10-20); BUN (Urea Nitrogen) 15 mg/dL (9.8-20.1); Bilirubin, Total 0.3 mg/dL (0.2-1.2); Calc. Creatinine Clearance 69 mL/min (70-130); Calcium 8.8 mg/dL (7.8-10.44); Carbon Dioxide 27 mmol/L (23-31); Cardiac Risk 2.6 (Less than 4.5); Chloride 102 mmol/L (98-107); Cholesterol 161 mg/dl (< 200 Desired); Globulin 2.8 g/dL (2.4-3.5); Glucose 98 mg/dL (83-110); HDL Cholesterol 62 mg/dL (>60 Neg Risk); LDL Cholesterol, Calculated 78 mg/dL; Potassium 3.7 mmol/L (3.5-5.1); Protein, Total 6.3 g/dL (5.8-8.1); Sodium 137 mmol/L (136-145); Triglycerides 107 mg/dL (Less than 150)
[2021-08-01 06:11] LABS: Troponin I Less than 0.010 ng/mL (< 0.028)
[2021-08-01] MEDS ORDERED: ADENOSINE 60 MG/20 ML VIAL ONE (08:49)
[2021-08-01 09:53] LABS: Troponin I Less than 0.010 ng/mL (< 0.028)
[2021-08-01 16:43] VITALS: BP 167/87; TEMP 98.1
== END 2021-08-01 18:58 ==
LOC: ERS 19:28 → NEURO 21:29
PROVIDERS: ADMIT Internal Medicine; ATTEND Family Medicine
DX: R07.89 Other chest pain (principal); I42.8 Other cardiomyopathies; I11.0 Hypertensive heart disease with heart failure; I50.23 Acute on chronic systolic (congestive) heart failure; E78.5 Hyperlipidemia, unspecified; K21.9 Gastro-esophageal reflux disease without esophagitis; K59.00 Constipation, unspecified; Z79.84 Long term (current) use of oral hypoglycemic drugs; Z79.899 Other long term (current) drug therapy; Z88.5 Allergy status to narcotic agent; Z95.810 Presence of automatic (implantable) cardiac defibrillator
CPT/HCPCS: 71045; 78452; 80053 ×2; 80061; 83880; 84484 ×4; 85025 ×2; 93005; 93017; 99285; A9500; 36415; 96372; 96374; G0378; J0153; J1650; J2405

== ENCOUNTER 2021-11-16 09:48 | Emergency (ER) | payer MEDICARE ==
[2021-11-16 10:53] LABS: White Blood Cell (WBC) Count 7.7 thou/uL (4.8-10.8)
[2021-11-16 10:54] LABS: #Eosinphils 0.2 thou/uL (0.0-0.7); #Lymphocytes 1.3 thou/uL (1.20-3.40); #Monocytes 0.6 thou/uL (0.11-0.59); #Neutrophils 5.6 thou/uL (1.40-6.50); %Basophils 0.6 % (0.0-1.0); %Eosinophils 2.2 % (0.0-10.0); %Lymphocytes 16.4 % (21.0-51.0); %Monocytes 8.2 % (0.0-10.0); %Neutrophils 72.7 % (42.0-75.0); Hemoglobin 11.4 g/dL (12.0-16.0); Mean Corpuscular HGB CONC 33.4 g/dL (32.0-36.0); Mean Corpuscular Hemoglobin 30.7 pg (27.0-31.0); Mean Platelet Volume 7.9 fL (7.4-10.4); Platelet Count 262 thou/uL (130-400); RBC Distribution Width 13.9 % (11.5-14.5); Red Blood Cell (RBC) Count 3.71 mill/uL (4.20-5.40)
[2021-11-16 11:31] LABS: ALT (SGPT) 19 U/L (8-55); AST (SGOT) 18 U/L (5-34); Albumin 3.5 g/dL (3.4-4.8); Alkaline Phosphatase 82 U/L (40-110); Anion Gap 13 mmol/L (10-20); BUN (Urea Nitrogen) 9 mg/dL (9.8-20.1); Bilirubin, Total 0.4 mg/dL (0.2-1.2); Calc. Creatinine Clearance 0 mL/min (70-130); Calcium 8.6 mg/dL (7.8-10.44); Carbon Dioxide 27 mmol/L (23-31); Chloride 101 mmol/L (98-107); Glucose 114 mg/dL (83-110); Potassium 3.1 mmol/L (3.5-5.1); Protein, Total 6.5 g/dL (5.8-8.1); Sodium 138 mmol/L (136-145)
== END 2021-11-16 12:21 | disposition home or self-care (01) ==
LOC: ERS 09:48
DX: R19.7 Diarrhea, unspecified (principal); I10 Essential (primary) hypertension; K21.9 Gastro-esophageal reflux disease without esophagitis; E78.00 Pure hypercholesterolemia, unspecified; I48.91 Unspecified atrial fibrillation; Z79.82 Long term (current) use of aspirin; Z79.899 Other long term (current) drug therapy
CPT/HCPCS: 80053; 85025; 99284

== ENCOUNTER 2021-12-04 11:14 | Emergency (ER) | payer MEDICARE ==
[2021-12-04 11:56] LABS: #Eosinphils 0.1 thou/uL (0.0-0.7); #Lymphocytes 1.4 thou/uL (1.20-3.40); #Monocytes 0.6 thou/uL (0.11-0.59); #Neutrophils 5.6 thou/uL (1.40-6.50); %Basophils 0.5 % (0.0-1.0); %Eosinophils 1.8 % (0.0-10.0); %Lymphocytes 18.1 % (21.0-51.0); %Monocytes 7.5 % (0.0-10.0); %Neutrophils 72.2 % (42.0-75.0); Hemoglobin 12.2 g/dL (12.0-16.0); Mean Corpuscular HGB CONC 31.4 g/dL (32.0-36.0); Mean Corpuscular Hemoglobin 29.7 pg (27.0-31.0); Mean Corpuscular Volume 94.5 fL (78.0-98.0); Mean Platelet Volume 8.9 fL (7.4-10.4); Platelet Count 272 thou/uL (130-400); Red Blood Cell (RBC) Count 4.13 mill/uL (4.20-5.40); White Blood Cell (WBC) Count 7.8 thou/uL (4.8-10.8)
[2021-12-04 12:13] LABS: ALT (SGPT) 22 U/L (8-55); AST (SGOT) 25 U/L (5-34); Albumin 3.7 g/dL (3.4-4.8); Alkaline Phosphatase 83 U/L (40-110); Anion Gap 14 mmol/L (10-20); BUN (Urea Nitrogen) 18 mg/dL (9.8-20.1); Bilirubin, Total 0.4 mg/dL (0.2-1.2); Calc. Creatinine Clearance 0 mL/min (70-130); Calcium 9.1 mg/dL (7.8-10.44); Carbon Dioxide 26 mmol/L (23-31); Chloride 101 mmol/L (98-107); Globulin 3.5 g/dL (2.4-3.5); Glucose 104 mg/dL (83-110); Lipase 16 U/L (8-78); Magnesium 2.3 mg/dL (1.6-2.6); Potassium 3.8 mmol/L (3.5-5.1); Protein, Total 7.2 g/dL (5.8-8.1); Sodium 137 mmol/L (136-145)
[2021-12-04 13:03] LABS: Bacteria/HPF None Seen HPF (None Seen); Bilirubin Negative (Negative); Blood, Urine Negative (Negative); Clarity Turbid (Clear); Glucose, Urine (Dipstick) Normal (Negative); Ketone, Urine Negative (Negative); Leukocyte 75 Leu/uL (Negative); Nitrite Negative (Negative); Protein, Urine (Dipstick) 10 mg/dL (Neg-Trace); RBC/HPF 0-3 HPF (0-3); Specific Gravity, Urine 1.033 (1.002-1.036); Squamous Epithelial None Seen HPF (0-3); Urobilinogen Normal mg/dL (Less than 2); WBC/HPF 0-3 HPF (0-3)
[2021-12-04] MEDS ORDERED: Iopamidol-370 76% 500 ML 1 ML ONE (13:23)
== END 2021-12-04 15:36 | disposition home or self-care (01) ==
LOC: ERS 11:14
DX: R10.30 Lower abdominal pain, unspecified (principal); R10.814 Left lower quadrant abdominal tenderness; I10 Essential (primary) hypertension; E78.00 Pure hypercholesterolemia, unspecified; K21.9 Gastro-esophageal reflux disease without esophagitis; I48.91 Unspecified atrial fibrillation; Z79.899 Other long term (current) drug therapy; Z79.82 Long term (current) use of aspirin; Z79.891 Long term (current) use of opiate analgesic
CPT/HCPCS: 36415; 74177; 80053; 81003; 81015; 83605; 83690; 83735; 85025; 93005; 94760; Q9967

== ENCOUNTER 2021-12-25 17:17 | Emergency (ER) | payer MEDICARE ==
[2021-12-25 18:46] LABS: #Eosinphils 0.1 thou/uL (0.0-0.7); #Lymphocytes 1.6 thou/uL (1.20-3.40); #Monocytes 0.7 thou/uL (0.11-0.59); #Neutrophils 5.3 thou/uL (1.40-6.50); %Basophils 0.1 % (0.0-1.0); %Eosinophils 1.2 % (0.0-10.0); %Lymphocytes 20.8 % (21.0-51.0); %Monocytes 8.9 % (0.0-10.0); Hemoglobin 12.1 g/dL (12.0-16.0); Mean Corpuscular HGB CONC 31.5 g/dL (32.0-36.0); Mean Corpuscular Hemoglobin 29.9 pg (27.0-31.0); Mean Corpuscular Volume 94.8 fL (78.0-98.0); Mean Platelet Volume 8.4 fL (7.4-10.4); Platelet Count 278 thou/uL (130-400); RBC Distribution Width 14.4 % (11.5-14.5); Red Blood Cell (RBC) Count 4.07 mill/uL (4.20-5.40); White Blood Cell (WBC) Count 7.7 thou/uL (4.8-10.8)
[2021-12-25 19:01] LABS: ALT (SGPT) 23 U/L (8-55); AST (SGOT) 25 U/L (5-34); Albumin 3.7 g/dL (3.4-4.8); Alkaline Phosphatase 100 U/L (40-110); Anion Gap 17 mmol/L (10-20); BUN (Urea Nitrogen) 14 mg/dL (9.8-20.1); Bilirubin, Total 0.5 mg/dL (0.2-1.2); Calc. Creatinine Clearance 0 mL/min (70-130); Calcium 8.3 mg/dL (7.8-10.44); Carbon Dioxide 23 mmol/L (23-31); Chloride 104 mmol/L (98-107); Estimated GFR 61; Globulin 2.8 g/dL (2.4-3.5); Glucose 101 mg/dL (83-110); Potassium 4.5 mmol/L (3.5-5.1); Protein, Total 6.5 g/dL (5.8-8.1); Sodium 139 mmol/L (136-145)
[2021-12-25 19:24] LABS: Bilirubin Negative (Negative); Blood, Urine Negative (Negative); Clarity Clear (Clear); Glucose, Urine (Dipstick) Normal (Negative); Ketone, Urine Negative (Negative); Leukocyte Negative Leu/uL (Negative); Nitrite Negative (Negative); Protein, Urine (Dipstick) Negative (Neg-Trace); Urobilinogen Normal mg/dL (Less than 2)
[2021-12-25] MEDS ORDERED: Acetaminophen 500 MG TAB ONE (20:39)
== END 2021-12-25 23:17 ==
LOC: ERS 17:17
DX: S00.03XA Contusion of scalp, initial encounter (principal); K21.9 Gastro-esophageal reflux disease without esophagitis; E78.00 Pure hypercholesterolemia, unspecified; I10 Essential (primary) hypertension; I48.91 Unspecified atrial fibrillation; Z79.82 Long term (current) use of aspirin; Z79.899 Other long term (current) drug therapy; W19.XXXA Unspecified fall, initial encounter
CPT/HCPCS: 36415; 70450; 80053; 81003; 83605; 84484; 85025; 93005

== ENCOUNTER 2022-03-15 03:23 | Emergency (ER) | payer MEDICARE ==
[2022-03-15 04:55] LABS: #Basophils 0.1 thou/uL (0.0-0.2); #Eosinphils 0.1 thou/uL (0.0-0.7); #Lymphocytes 2.1 thou/uL (1.20-3.40); #Monocytes 0.9 thou/uL (0.11-0.59); #Neutrophils 5.1 thou/uL (1.40-6.50); %Basophils 0.9 % (0.0-1.0); %Eosinophils 1.5 % (0.0-10.0); %Lymphocytes 25.9 % (21.0-51.0); %Monocytes 10.4 % (0.0-10.0); %Neutrophils 61.2 % (42.0-75.0); Hemoglobin 11.8 g/dL (12.0-16.0); Mean Corpuscular HGB CONC 31.3 g/dL (32.0-36.0); Mean Corpuscular Hemoglobin 29.3 pg (27.0-31.0); Mean Corpuscular Volume 93.5 fL (78.0-98.0); Mean Platelet Volume 8.7 fL (7.4-10.4); Platelet Count 253 thou/uL (130-400); RBC Distribution Width 13.9 % (11.5-14.5); Red Blood Cell (RBC) Count 4.03 mill/uL (4.20-5.40); White Blood Cell (WBC) Count 8.2 thou/uL (4.8-10.8)
[2022-03-15 05:15] LABS: ALT (SGPT) 31 U/L (8-55); AST (SGOT) 22 U/L (5-34); Albumin 3.9 g/dL (3.4-4.8); Alkaline Phosphatase 84 U/L (40-110); Anion Gap 12 mmol/L (10-20); BUN (Urea Nitrogen) 21 mg/dL (9.8-20.1); Bilirubin, Total 0.3 mg/dL (0.2-1.2); Calc. Creatinine Clearance 0 mL/min (70-130); Calcium 9.2 mg/dL (7.8-10.44); Carbon Dioxide 27 mmol/L (23-31); Chloride 103 mmol/L (98-107); Estimated GFR 51; Globulin 2.6 g/dL (2.4-3.5); Glucose 93 mg/dL (83-110); Potassium 4.1 mmol/L (3.5-5.1); Protein, Total 6.5 g/dL (5.8-8.1); Sodium 138 mmol/L (136-145)
== END 2022-03-15 07:21 | disposition home or self-care (01) ==
LOC: ERS 03:23
DX: T82.118A Breakdown (mechanical) of other cardiac electronic device, initial encounter (principal); K21.9 Gastro-esophageal reflux disease without esophagitis; I10 Essential (primary) hypertension; E78.00 Pure hypercholesterolemia, unspecified; Z79.899 Other long term (current) drug therapy
CPT/HCPCS: 36415; 71045; 80053; 83880; 84484; 85025; 93005

== ENCOUNTER 2022-09-20 16:59 | Emergency (ER) | payer MEDICARE ==
[2022-09-20 17:51] LABS: #Basophils 0.1 thou/uL (0.0-0.2); #Eosinphils 0.2 thou/uL (0.0-0.7); #Lymphocytes 2.1 thou/uL (1.20-3.40); #Monocytes 0.6 thou/uL (0.11-0.59); #Neutrophils 3.8 thou/uL (1.40-6.50); %Basophils 0.9 % (0.0-1.0); %Eosinophils 2.3 % (0.0-10.0); %Lymphocytes 31.1 % (21.0-51.0); %Monocytes 9.3 % (0.0-10.0); %Neutrophils 56.5 % (42.0-75.0); Hemoglobin 11.9 g/dL (12.0-16.0); Mean Corpuscular HGB CONC 32.2 g/dL (32.0-36.0); Mean Corpuscular Hemoglobin 30.1 pg (27.0-31.0); Mean Corpuscular Volume 93.5 fl (78.0-98.0); Platelet Count 283 10x3/uL (130-400); RBC Distribution Width 13.2 % (11.5-14.5); Red Blood Cell (RBC) Count 3.94 mill/uL (4.20-5.40); White Blood Cell (WBC) Count 6.7 10x3/uL (4.8-10.8)
[2022-09-20 19:10] LABS: Phosphorus 4.1 mg/dL (2.3-4.7)
[2022-09-20 19:17] LABS: Troponin I Less than 0.010 ng/mL (< 0.028)
[2022-09-20 19:21] LABS: ALT (SGPT) 32 U/L (8-55); AST (SGOT) 28 U/L (5-34); Albumin 3.6 g/dL (3.4-4.8); Alkaline Phosphatase 69 U/L (40-110); Anion Gap 17 mmol/L (10-20); BUN (Urea Nitrogen) 15 mg/dL (9.8-20.1); Bilirubin, Total 0.4 mg/dL (0.2-1.2); CK (CPK) 54 U/L (29-168); Calc. Creatinine Clearance 0 mL/min (70-130); Calcium 8.6 mg/dL (7.8-10.44); Carbon Dioxide 21 mmol/L (23-31); Chloride 101 mmol/L (98-107); Estimated GFR 52; Glucose 81 mg/dL (83-110); Magnesium 2.1 mg/dL (1.6-2.6); Potassium 4.5 mmol/L (3.5-5.1); Protein, Total 6.6 g/dL (5.8-8.1); Sodium 134 mmol/L (136-145)
[2022-09-20 20:38] LABS: Bilirubin Negative (Negative); Blood, Urine Negative (Negative); Clarity Clear (Clear); Glucose, Urine (Dipstick) Normal (Negative); Ketone, Urine Negative (Negative); Leukocyte Negative Leu/uL (Negative); Nitrite Negative (Negative); Protein, Urine (Dipstick) Negative (Neg-Trace); Specific Gravity, Urine 1.008 (1.002-1.036); Urobilinogen Normal mg/dL (Less than 2)
== END 2022-09-20 21:07 | disposition home or self-care (01) ==
LOC: ERS 16:59
DX: R25.1 Tremor, unspecified (principal); I10 Essential (primary) hypertension; K21.9 Gastro-esophageal reflux disease without esophagitis; E78.00 Pure hypercholesterolemia, unspecified
CPT/HCPCS: 36415; 80053; 81003; 82550; 83735; 84100; 84443; 84484; 85025; 93005

== ENCOUNTER 2022-09-27 18:26 | Inpatient (IN) | payer MEDICARE ==
[2022-09-27 20:14] LABS: #Basophils 0.1 thou/uL (0.0-0.2); #Eosinphils 0.1 thou/uL (0.0-0.7); #Lymphocytes 1.7 thou/uL (1.20-3.40); #Monocytes 0.8 thou/uL (0.11-0.59); #Neutrophils 4.6 thou/uL (1.40-6.50); %Basophils 0.7 % (0.0-1.0); %Lymphocytes 23.3 % (21.0-51.0); %Monocytes 10.8 % (0.0-10.0); %Neutrophils 63.1 % (42.0-75.0); Mean Corpuscular HGB CONC 33.5 g/dL (32.0-36.0); Mean Corpuscular Hemoglobin 31.6 pg (27.0-31.0); Mean Corpuscular Volume 94.3 fl (78.0-98.0); Mean Platelet Volume 7.9 fL (7.4-10.4); Platelet Count 265 10x3/uL (130-400); RBC Distribution Width 13.4 % (11.5-14.5); White Blood Cell (WBC) Count 7.2 10x3/uL (4.8-10.8)
[2022-09-27 20:37] LABS: ALT (SGPT) 24 U/L (8-55); AST (SGOT) 22 U/L (5-34); Albumin 3.7 g/dL (3.4-4.8); Alkaline Phosphatase 76 U/L (40-110); Anion Gap 13 mmol/L (10-20); BUN (Urea Nitrogen) 12 mg/dL (9.8-20.1); Bilirubin, Total 0.3 mg/dL (0.2-1.2); Calc. Creatinine Clearance 0 mL/min (70-130); Calcium 8.9 mg/dL (7.8-10.44); Carbon Dioxide 26 mmol/L (23-31); Chloride 101 mmol/L (98-107); Estimated GFR 52; Globulin 3.1 g/dL (2.4-3.5); Glucose 87 mg/dL (83-110); Potassium 4.3 mmol/L (3.5-5.1); Protein, Total 6.8 g/dL (5.8-8.1); Sodium 136 mmol/L (136-145)
[2022-09-27 21:02] LABS: Bilirubin Negative (Negative); Blood, Urine Negative (Negative); Clarity Clear (Clear); Glucose, Urine (Dipstick) Normal (Negative); Ketone, Urine Negative (Negative); Leukocyte Negative Leu/uL (Negative); Nitrite Negative (Negative); Protein, Urine (Dipstick) Negative (Neg-Trace); Specific Gravity, Urine 1.011 (1.002-1.036); Urobilinogen Normal mg/dL (Less than 2)
[2022-09-27] MEDS ORDERED: Ondansetron ODT 4 MG TAB PO PRN (22:14)
[2022-09-27] MEDS ORDERED: hydrALAZINE 20 MG/ML VIAL SLOW IVP PRN (22:14)
[2022-09-27] MEDS ORDERED: Dextrose 5% in Water 1,000 ML IV PRN (22:14)
[2022-09-27] MEDS ORDERED: Ondansetron PF 4 MG/2 ML Vial IVP PRN (22:14)
[2022-09-27] MEDS ORDERED: Acetaminophen 325 MG TAB PO PRN (22:14)
[2022-09-27] MEDS ORDERED: Acetaminophen 650 MG Suppository PR PRN (22:14)
[2022-09-27] MEDS ORDERED: HumaLOG 300 UNITS/3 ML VIAL SC PRN ×2 (22:14)
[2022-09-27] MEDS ORDERED: Dextrose 50% Abboject 50 ML SYRINGE SLOW IVP PRN (22:14)
[2022-09-27] MEDS ORDERED: Aspirin 81 mg Enteric Coated Tablet PO SCH (22:30)
[2022-09-27 23:54] LABS: Troponin I Less than 0.010 ng/mL (< 0.028)
[2022-09-28] MEDS ORDERED: Aspirin Chewable 81 MG TAB ONE ×2 (00:27→09:59)
[2022-09-28 02:42] LABS: #Basophils 0.1 thou/uL (0.0-0.2); #Eosinphils 0.1 thou/uL (0.0-0.7); #Lymphocytes 2.3 thou/uL (1.20-3.40); #Monocytes 0.6 thou/uL (0.11-0.59); #Neutrophils 3.7 thou/uL (1.40-6.50); %Basophils 0.7 % (0.0-1.0); %Eosinophils 2.1 % (0.0-10.0); %Lymphocytes 34.4 % (21.0-51.0); %Monocytes 8.9 % (0.0-10.0); %Neutrophils 53.8 % (42.0-75.0); Hemoglobin 11.7 g/dL (12.0-16.0); Mean Corpuscular HGB CONC 31.9 g/dL (32.0-36.0); Mean Corpuscular Hemoglobin 30.4 pg (27.0-31.0); Mean Corpuscular Volume 95.3 fl (78.0-98.0); Mean Platelet Volume 7.9 fL (7.4-10.4); Platelet Count 277 10x3/uL (130-400); RBC Distribution Width 13.4 % (11.5-14.5); Red Blood Cell (RBC) Count 3.84 mill/uL (4.20-5.40); White Blood Cell (WBC) Count 6.8 10x3/uL (4.8-10.8)
[2022-09-28 03:06] LABS: Troponin I Less than 0.010 ng/mL (< 0.028)
[2022-09-28 03:07] LABS: Anion Gap 15 mmol/L (10-20); BUN (Urea Nitrogen) 12 mg/dL (9.8-20.1); Calc. Creatinine Clearance 0 mL/min (70-130); Calcium 8.8 mg/dL (7.8-10.44); Carbon Dioxide 22 mmol/L (23-31); Cardiac Risk 1.8 (Less than 4.5); Chloride 103 mmol/L (98-107); Cholesterol 121 mg/dl (< 200 Desired); Estimated GFR 58; Glucose 91 mg/dL (83-110); HDL Cholesterol 66 mg/dL (>60 Neg Risk); LDL Cholesterol, Calculated 41 mg/dL; Potassium 4.2 mmol/L (3.5-5.1); Sodium 136 mmol/L (136-145); Triglycerides 71 mg/dL (Less than 150)
[2022-09-28] MEDS ORDERED: Sacubitril 49 MG/Valsartan 51 MG TABLET PO SCH (09:00)
[2022-09-28] MEDS ORDERED: OMEPRAZOLE 20 MG PO SCH (09:00)
[2022-09-28 09:05] VITALS: BMI 30.4
[2022-09-28 09:50] LABS: Magnesium 2.2 mg/dL (1.6-2.6)
[2022-09-28] MEDS: Aspirin 81 mg Enteric Coated Tablet PO SCH (10:04)
[2022-09-28 14:50] LABS: Amphetamine Not Detected (NotDetected); Barbiturates Screen Not Detected (NotDetected); Benzodiazepine Screen Not Detected (NotDetected); Cocaine Metabolite Screen Not Detected (NotDetected); Methadone Not Detected (NotDetected); Methamphetamine Not Detected (NotDetected); Opiate Screen Not Detected (NotDetected); Oxycodone Screen Not Detected (NotDetected); Phencyclidine (PCP) Not Detected (NotDetected); THC/Cannabinoid Screen Not Detected (NotDetected); Tricyclic Screen Not Detected (NotDetected)
[2022-09-28] MEDS ORDERED: Gabapentin 300 MG CAP PO SCH (15:00)
[2022-09-28] MEDS: Gabapentin 300 MG CAP PO SCH ×2 (15:59→21:34)
[2022-09-28] MEDS: Atorvastatin Calcium 40 MG TAB PO SCH (21:35)
[2022-09-29] MEDS ORDERED: Polyethylene Glycol 3350 17 GM Packet PO PRN (08:14)
[2022-09-29] MEDS ORDERED: Aspirin Chewable 81 MG TAB PO SCH (09:00)
[2022-09-29] MEDS ORDERED: Non-Formulary Item 1 EACH (Magnesium Oxide [Magnesium] 400 MG Tablet) PO SCH (09:00)
[2022-09-29] MEDS ORDERED: Carvedilol 6.25 MG TAB PO SCH (09:00)
[2022-09-29] MEDS: Amiodarone 200 MG TAB PO SCH (09:29)
[2022-09-29] MEDS: Sacubitril 24MG/Valsartan 26 MG TAB PO SCH ×2 (09:30→20:18)
[2022-09-29] MEDS: Montelukast Sodium 10 mg Tablet PO SCH (09:30)
[2022-09-29] MEDS: Magnesium Oxide 400 MG TAB PO SCH (09:30)
[2022-09-29] MEDS: Gabapentin 300 MG CAP PO SCH ×3 (09:30→20:18)
[2022-09-29] MEDS: Aspirin 81 mg Enteric Coated Tablet PO SCH (09:30)
[2022-09-29] MEDS: Ezetimibe 10 MG TAB PO SCH (09:30)
[2022-09-29] MEDS: Carvedilol 3.125 MG TAB PO SCH ×2 (09:31→20:18)
[2022-09-29] MEDS: Atorvastatin Calcium 40 MG TAB PO SCH (20:18)
[2022-09-30 06:46] LABS: Phosphorus 3.8 mg/dL (2.3-4.7)
[2022-09-30] MEDS ORDERED: Spironolactone 25 MG TAB PO SCH (08:00)
[2022-09-30] MEDS: Montelukast Sodium 10 mg Tablet PO SCH (08:52)
[2022-09-30] MEDS: Magnesium Oxide 400 MG TAB PO SCH (08:52)
[2022-09-30] MEDS: Amiodarone 200 MG TAB PO SCH (08:52)
[2022-09-30] MEDS: Ezetimibe 10 MG TAB PO SCH (08:52)
[2022-09-30] MEDS: Gabapentin 300 MG CAP PO SCH ×2 (08:52→16:07)
[2022-09-30] MEDS: Aspirin 81 mg Enteric Coated Tablet PO SCH (08:52)
[2022-09-30] MEDS: Carvedilol 3.125 MG TAB PO SCH (08:53)
[2022-09-30] MEDS: Sacubitril 24MG/Valsartan 26 MG TAB PO SCH (08:53)
[2022-09-30] MEDS ORDERED: Ondansetron ODT 4 MG TAB SL PRN (11:09)
[2022-09-30 15:46] VITALS: BP 142/64; TEMP 98
== END 2022-09-30 19:15 | DRG 71 ==
LOC: ERS 18:26 → ERHOLD 21:46 → NEURO 09-28 17:33
PROVIDERS: ADMIT Student in an Organized Health Care Education/Training Program; ATTEND Emergency Medicine
DX: G93.49 Other encephalopathy (principal); I50.22 Chronic systolic (congestive) heart failure; R25.1 Tremor, unspecified; D50.9 Iron deficiency anemia, unspecified; I25.10 Atherosclerotic heart disease of native coronary artery without angina pectoris; I11.0 Hypertensive heart disease with heart failure; K21.9 Gastro-esophageal reflux disease without esophagitis; E78.00 Pure hypercholesterolemia, unspecified; Z96.653 Presence of artificial knee joint, bilateral; R54 Age-related physical debility; F22 Delusional disorders; E11.9 Type 2 diabetes mellitus without complications; Z95.0 Presence of cardiac pacemaker; Z79.82 Long term (current) use of aspirin; Z79.899 Other long term (current) drug therapy; Z88.6 Allergy status to analgesic agent; Z88.5 Allergy status to narcotic agent; Z88.8 Allergy status to other drugs, medicaments and biological substances; Z90.710 Acquired absence of both cervix and uterus; Z90.49 Acquired absence of other specified parts of digestive tract
CPT/HCPCS: 36415; 36416; 70450; 71045; 80048; 80053; 80061; 80306; 81003; 82607; 83605; 83735; 83880; 84100; 84443; 84484; 85025; 93005; 93880; 94760; 95712; 95819; 95957; J1650; Q0162

== ENCOUNTER 2022-10-01 22:23 | Inpatient (IN) | payer MEDICARE ==
[~2022-10-01 22:23] MED LIST changes: -Iopamidol-370 76% 500 ML 1 ML ONE; +Iopamidol-370 76% 500 ML MDV (1 ML CHARGE) ONE
[2022-10-01 23:12] LABS: #Basophils 0.1 thou/uL (0.0-0.2); #Eosinphils 0.1 thou/uL (0.0-0.7); #Lymphocytes 2.2 thou/uL (1.20-3.40); #Monocytes 0.8 thou/uL (0.11-0.59); #Neutrophils 5.3 thou/uL (1.40-6.50); %Basophils 0.7 % (0.0-1.0); %Eosinophils 1.3 % (0.0-10.0); %Lymphocytes 25.9 % (21.0-51.0); %Monocytes 9.6 % (0.0-10.0); %Neutrophils 62.5 % (42.0-75.0); Hemoglobin 11.9 g/dL (12.0-16.0); Mean Corpuscular HGB CONC 32.9 g/dL (32.0-36.0); Mean Corpuscular Hemoglobin 30.8 pg (27.0-31.0); Mean Corpuscular Volume 93.4 fl (78.0-98.0); Platelet Count 276 10x3/uL (130-400); RBC Distribution Width 13.4 % (11.5-14.5); Red Blood Cell (RBC) Count 3.87 mill/uL (4.20-5.40); White Blood Cell (WBC) Count 8.5 10x3/uL (4.8-10.8)
[2022-10-01 23:23] LABS: PTT 24.8 sec (22.9-36.1); Prothrombin Time 13.3 sec (12.0-14.7)
[2022-10-01 23:27] LABS: ALT (SGPT) 39 U/L (8-55); AST (SGOT) 45 U/L (5-34); Albumin 3.8 g/dL (3.4-4.8); Alkaline Phosphatase 79 U/L (40-110); Anion Gap 19 mmol/L (10-20); BUN (Urea Nitrogen) 17 mg/dL (9.8-20.1); Bilirubin, Total 0.4 mg/dL (0.2-1.2); Calc. Creatinine Clearance 0 mL/min (70-130); Calcium 8.9 mg/dL (7.8-10.44); Carbon Dioxide 20 mmol/L (23-31); Chloride 99 mmol/L (98-107); Estimated GFR 48; Globulin 3.1 g/dL (2.4-3.5); Glucose 94 mg/dL (83-110); Potassium 4.6 mmol/L (3.5-5.1); Protein, Total 6.9 g/dL (5.8-8.1); Sodium 133 mmol/L (136-145)
[2022-10-02] MEDS ORDERED: Polyethylene Glycol 3350 17 GM Packet PO PRN (00:57)
[2022-10-02] MEDS ORDERED: hydrALAZINE 20 MG/ML VIAL SLOW IVP PRN (00:59)
[2022-10-02] MEDS ORDERED: Mag-Al 1200 mg/1200 mg/30 ML UDCUP PO PRN (00:59)
[2022-10-02] MEDS ORDERED: niCARdipine 25 MG in Sodium Chloride 0.9% 250 ML 250 ML IVPB PRN (00:59)
[2022-10-02] MEDS ORDERED: Labetalol HCl 100 MG/20 ML VIAL SLOW IVP PRN (00:59)
[2022-10-02] MEDS ORDERED: Acetaminophen 325 MG TAB PO PRN (00:59)
[2022-10-02 01:07] LABS: SARS-CoV-2 NAA Rapid Test Not Detected (NotDetected)
[2022-10-02] MEDS ORDERED: Ondansetron ODT 4 MG TAB PO PRN (01:12)
[2022-10-02] MEDS ORDERED: Electrolyte Replacement Protocol 1 EACH FS SCH (02:30)
[2022-10-02] MEDS ORDERED: HumaLOG 300 UNITS/3 ML VIAL SC SCH (02:30)
[2022-10-02] MEDS ORDERED: HumaLOG 300 UNITS/3 ML VIAL SC PRN (02:45)
[2022-10-02] MEDS ORDERED: Dextrose 50% Abboject 50 ML SYRINGE IVP PRN (02:45)
[2022-10-02] MEDS ORDERED: Dextrose 5% in Water 1,000 ML IV PRN (02:45)
[2022-10-02] MEDS: Dextrose 5 %-0.45 % NaCl 1,000 ML IV SCH ×2 (02:56→16:28)
[2022-10-02 05:32] VITALS: BMI 29.5
[2022-10-02] MEDS: NO ANTITHROMBOTICS FS SCH (06:18)
[2022-10-02] MEDS: Sacubitril 24MG/Valsartan 26 MG TAB PO SCH ×2 (08:25→21:08)
[2022-10-02] MEDS: Montelukast Sodium 10 mg Tablet PO SCH (08:25)
[2022-10-02] MEDS: Spironolactone 25 MG TAB PO SCH (08:25)
[2022-10-02] MEDS: Gabapentin 300 MG CAP PO SCH ×3 (08:27→21:08)
[2022-10-02] MEDS: Magnesium Oxide 400 MG TAB PO SCH (08:28)
[2022-10-02] MEDS: Carvedilol 3.125 MG TAB PO SCH ×2 (08:28→21:08)
[2022-10-02] MEDS: Ezetimibe 10 MG TAB PO SCH (08:28)
[2022-10-02] MEDS: Cyanocobalamin (Vitamin B-12) 1,000 MCG TAB PO SCH (08:34)
[2022-10-02] MEDS ORDERED: CRANBERRY 500 MG PO SCH (09:00)
[2022-10-02] MEDS ORDERED: Cyanocobalamin (Vitamin B-12) 1,000 MCG TAB PO SCH (09:00)
[2022-10-02] MEDS: Atorvastatin Calcium 40 MG TAB PO SCH (21:08)
[2022-10-03] MEDS: NO ANTITHROMBOTICS FS SCH (02:21)
[2022-10-03] MEDS: Dextrose 5 %-0.45 % NaCl 1,000 ML IV SCH ×2 (06:00→16:48)
[2022-10-03] MEDS: Carvedilol 3.125 MG TAB PO SCH ×2 (08:27→20:56)
[2022-10-03] MEDS: Gabapentin 300 MG CAP PO SCH ×3 (08:27→20:56)
[2022-10-03] MEDS: Cyanocobalamin (Vitamin B-12) 1,000 MCG TAB PO SCH (08:27)
[2022-10-03] MEDS: Magnesium Oxide 400 MG TAB PO SCH (08:28)
[2022-10-03] MEDS: Sacubitril 24MG/Valsartan 26 MG TAB PO SCH ×2 (08:28→20:56)
[2022-10-03] MEDS: Ezetimibe 10 MG TAB PO SCH (08:28)
[2022-10-03] MEDS: Spironolactone 25 MG TAB PO SCH (08:28)
[2022-10-03] MEDS: Montelukast Sodium 10 mg Tablet PO SCH (08:28)
[2022-10-03] MEDS: Atorvastatin Calcium 40 MG TAB PO SCH (20:56)
[2022-10-04] MEDS: Dextrose 5 %-0.45 % NaCl 1,000 ML IV SCH (06:05)
[2022-10-04] MEDS ORDERED: Amiodarone 200 MG TAB PO SCH (09:00)
[2022-10-04] MEDS: Sacubitril 24MG/Valsartan 26 MG TAB PO SCH (09:33)
[2022-10-04] MEDS: Gabapentin 300 MG CAP PO SCH ×2 (09:33→15:42)
[2022-10-04] MEDS: Carvedilol 3.125 MG TAB PO SCH (09:34)
[2022-10-04] MEDS: Magnesium Oxide 400 MG TAB PO SCH (09:34)
[2022-10-04] MEDS: Montelukast Sodium 10 mg Tablet PO SCH (09:34)
[2022-10-04] MEDS: Cyanocobalamin (Vitamin B-12) 1,000 MCG TAB PO SCH (09:34)
[2022-10-04] MEDS: Spironolactone 25 MG TAB PO SCH (09:34)
[2022-10-04] MEDS: Ezetimibe 10 MG TAB PO SCH (09:34)
[2022-10-04 11:48] VITALS: TEMP 97.7
[2022-10-04 15:39] VITALS: BP 118/72
[2022-10-31] MEDS ORDERED: Tenecteplase 50 MG ONE (23:47)
== END 2022-10-04 17:13 | disposition home or self-care (01) | DRG 62 ==
LOC: ERS 22:23 → CCU 10-02 00:18 → NEURO 10-03 20:31
PROVIDERS: ADMIT Student in an Organized Health Care Education/Training Program; ATTEND Hospitalist
DX: I63.9 Cerebral infarction, unspecified (principal); E87.1 Hypo-osmolality and hyponatremia; E87.20 Acidosis, unspecified; G81.91 Hemiplegia, unspecified affecting right dominant side; I50.22 Chronic systolic (congestive) heart failure; N17.9 Acute kidney failure, unspecified; E11.9 Type 2 diabetes mellitus without complications; Z96.659 Presence of unspecified artificial knee joint; R54 Age-related physical debility; K21.9 Gastro-esophageal reflux disease without esophagitis; E78.00 Pure hypercholesterolemia, unspecified; R29.715 NIHSS score 15; D50.9 Iron deficiency anemia, unspecified; R29.810 Facial weakness; I11.0 Hypertensive heart disease with heart failure; I25.10 Atherosclerotic heart disease of native coronary artery without angina pectoris; Z79.899 Other long term (current) drug therapy; Z79.82 Long term (current) use of aspirin; Z95.810 Presence of automatic (implantable) cardiac defibrillator; Z88.6 Allergy status to analgesic agent; Z88.5 Allergy status to narcotic agent; Z90.710 Acquired absence of both cervix and uterus; Z90.49 Acquired absence of other specified parts of digestive tract; Z20.822 Contact with and (suspected) exposure to COVID-19
CPT/HCPCS: 36416; 70450; 70496; 70498; 80053; 82550; 84484; 85025; 85610; 85730; 93005; 93306; 94660; 96374; J3101; J7042; Q9967; U0002

== ENCOUNTER 2022-10-06 20:18 | Emergency (ER) | payer MEDICARE ==
[2022-10-06] MEDS ORDERED: Acetaminophen 500 MG TAB ONE (20:43)
== END 2022-10-06 21:51 ==
LOC: ERS 20:18
DX: M19.90 Unspecified osteoarthritis, unspecified site (principal); K21.9 Gastro-esophageal reflux disease without esophagitis; I10 Essential (primary) hypertension
CPT/HCPCS: 99283

== ENCOUNTER 2023-03-31 08:37 | Emergency (ER) | payer MEDICARE ==
[2023-03-31 09:32] LABS: #Eosinphils 0.1 thou/uL (0.0-0.7); #Monocytes 0.4 thou/uL (0.11-0.59); #Neutrophils 8.9 thou/uL (1.40-6.50); %Basophils 0.1 % (0.0-1.0); %Eosinophils 1.2 % (0.0-10.0); %Lymphocytes 13.2 % (21.0-51.0); %Neutrophils 80.6 % (42.0-75.0); Hematocrit 41.3 % (36.0-47.0); Hemoglobin 13.2 g/dL (12.0-16.0); Mean Corpuscular Hemoglobin 28.9 pg (27.0-31.0); Mean Corpuscular Volume 90.4 fl (78.0-98.0); Mean Platelet Volume 10.4 fL (7.4-10.4); Platelet Count 262 10x3/uL (130-400); RBC Distribution Width 16.8 % (11.5-14.5); Red Blood Cell (RBC) Count 4.57 mill/uL (4.20-5.40)
[2023-03-31 10:07] LABS: ALT (SGPT) 30 U/L (8-55); AST (SGOT) 22 U/L (5-34); Albumin 3.6 g/dL (3.4-4.8); Alkaline Phosphatase 68 U/L (40-110); Anion Gap 14 mmol/L (10-20); BUN (Urea Nitrogen) 27 mg/dL (9.8-20.1); Bilirubin, Total 0.5 mg/dL (0.2-1.2); Calc. Creatinine Clearance 0 mL/min (70-130); Calcium 8.4 mg/dL (7.8-10.44); Carbon Dioxide 22 mmol/L (23-31); Chloride 104 mmol/L (98-107); Estimated GFR 52; Globulin 2.4 g/dL (2.4-3.5); Glucose 185 mg/dL (83-110); Sodium 136 mmol/L (136-145)
[2023-03-31 10:09] LABS: Troponin I 0.014 ng/mL (< 0.028)
[2023-03-31 13:24] LABS: Bacteria/HPF 4+ HPF (None Seen); Bilirubin Negative (Negative); Blood, Urine Negative (Negative); CAUTI Indications for Culture Dysuria,urgency,freq; Clarity Clear (Clear); Glucose, Urine (Dipstick) Normal (Negative); Ketone, Urine Negative (Negative); Leukocyte 500 Leu/uL (Negative); Nitrite Negative (Negative); Protein, Urine (Dipstick) Negative (Neg-Trace); RBC/HPF 0-3 HPF (0-3); Specific Gravity, Urine 1.026 (1.002-1.036); Squamous Epithelial 0-3 HPF (0-3); Urobilinogen Normal mg/dL (Less than 2)
[2023-03-31 13:25] LABS: Urine Culture Reflex No No
== END 2023-03-31 14:50 | disposition home or self-care (01) ==
LOC: ERS 08:37
DX: N39.0 Urinary tract infection, site not specified (principal); K21.9 Gastro-esophageal reflux disease without esophagitis; E78.00 Pure hypercholesterolemia, unspecified; I11.0 Hypertensive heart disease with heart failure; I50.9 Heart failure, unspecified; Z79.82 Long term (current) use of aspirin; Z79.899 Other long term (current) drug therapy
CPT/HCPCS: 36415; 70450; 72100; 72125; 80053; 81001; 84443; 84484; 85025; 87077; 87086; 87186; 93005; 94760